=== PATIENT | male | born 1950 | race Caucasian/White ===

== ENCOUNTER → 2017-07-07 | Outpatient (REF) | payer OTHER ==
[2017-07-07 18:27] LABS: THEOPHYLLINE LEVEL 7.7 UG/ML (10.0-20.0)
== END ==
LOC: M LAB REF 17:13
DX: J62.0 Pneumoconiosis due to talc dust (principal)

== ENCOUNTER → 2018-05-27 | Outpatient (REF) | payer MEDICARE ==
[2018-05-27 18:25] LABS: PERCENT SATURATION 12.2 % (19.7-50.0)
== END ==
LOC: M LAB REF 17:04
PROVIDERS: ATTEND Internal Medicine Nephrology
DX: D64.9 Anemia, unspecified (principal)

== ENCOUNTER 2018-06-04 10:28 | Outpatient (CLI) | payer MEDICARE ==
[2018-06-04] VITALS (7 sets, daily range): BP systolic 131–162; BP diastolic 60–76
[~2018-06-04] VITALS: Ht 179.1 cm; Wt 131.4 kg
[2018-06-04] MEDS ORDERED: IRON SUCROSE 25 MG in NS 50 ML IV ONE (12:00)
[2018-06-04] MEDS ORDERED: BUPR300T34 PO (12:44)
[2018-06-04] MEDS ORDERED: DULO60CA35 PO (12:44)
[2018-06-04] MEDS ORDERED: COMBAER6 INH (12:44)
[2018-06-04] MEDS ORDERED: METH5TA PO (12:44)
[2018-06-04] MEDS ORDERED: ADV100INH INH (12:44)
[2018-06-04] MEDS ORDERED: ZANA4CAP PO (12:44)
[2018-06-04] MEDS ORDERED: THEO1CAP4 PO (12:44)
[2018-06-04] MEDS ORDERED: VITA-112 PO (12:44)
[2018-06-04] MEDS ORDERED: CETI10TA PO (12:44)
[2018-06-04] MEDS ORDERED: AMIT50TA PO (12:44)
[2018-06-04] MEDS ORDERED: NOVOINJ3 SQ (12:44)
[2018-06-04] MEDS ORDERED: PROP50TA3 PO (12:44)
[2018-06-04] MEDS ORDERED: DILT1CAP5 PO (12:44)
[2018-06-04] MEDS ORDERED: QUET150T2 PO (12:44)
[2018-06-04] MEDS ORDERED: PRAV40TA2 PO (12:44)
[2018-06-04] MEDS ORDERED: BASA100I SQ (12:44)
[2018-06-04] MEDS ORDERED: GABA-843 PO (12:44)
[2018-06-04] MEDS ORDERED: CINA30TA PO (12:44)
[2018-06-04] MEDS ORDERED: HYDR50CA2 PO (12:44)
[2018-06-04] MEDS ORDERED: MIRT15TA3 PO (12:44)
[2018-06-04] MEDS ORDERED: IRON SUCROSE 375 MG in NS 250 ML IV ONE (13:00)
== END 2018-06-04 16:28 | disposition home or self-care (01) ==
LOC: M INFU 10:28
PROVIDERS: ATTEND Internal Medicine Nephrology
DX: D50.9 Iron deficiency anemia, unspecified (principal)
CPT/HCPCS: 96365; 96366; J1756

== ENCOUNTER 2018-06-18 09:57 | Outpatient (CLI) | payer MEDICARE ==
[~2018-06-18] VITALS: Ht 179.1 cm; Wt 131.4 kg
[2018-06-18] VITALS (8 sets, daily range): BP systolic 107–145; BP diastolic 53–78
[~2018-06-18 09:57] MED LIST: ADV100INH INH; AMIT50TA PO; BASA100I SQ; BUPR300T34 PO; CETI10TA PO; CINA30TA PO; COMBAER6 INH; DILT1CAP5 PO; DULO60CA35 PO; GABA-843 PO; HYDR50CA2 PO; METH5TA PO; MIRT15TA3 PO; NOVOINJ3 SQ; PRAV40TA2 PO; PROP50TA3 PO; QUET150T2 PO; THEO1CAP4 PO; VITA-112 PO; ZANA4CAP PO
[2018-06-18] MEDS ORDERED: IRON SUCROSE 400 MG in NS 250 ML OVER 2.5 HRS IV ONE (11:00)
== END 2018-06-18 14:55 | disposition home or self-care (01) ==
LOC: M INFU 09:57
PROVIDERS: ATTEND Internal Medicine Nephrology
DX: D50.9 Iron deficiency anemia, unspecified (principal); Z79.899 Other long term (current) drug therapy
CPT/HCPCS: 96365; 96366; J1756

== ENCOUNTER → 2019-04-15 | Outpatient (REF) | payer MEDICARE ==
[~2019-04-15] MED LIST changes: -BUPR300T34 PO; +BUPR300T92 PO; -CINA30TA PO; +CINA30TA4 PO
[2019-04-15 18:39] LABS: FREE T4 0.84 NG/DL (0.76-1.46); PERCENT SATURATION 28.9 % (19.7-50.0); THYROID STIMULATING HORMONE 0.674 uIU/ML (0.358-3.740)
[2019-04-15 18:40] LABS: TOTAL T3 78.9 NG/DL (60.0-181.0)
[2019-04-15 18:41] LABS: FOLATE 6.1 NG/ML
== END ==
LOC: M LAB REF 17:54
PROVIDERS: ATTEND Nurse Practitioner Family
DX: E03.9 Hypothyroidism, unspecified (principal); R53.83 Other fatigue; D64.9 Anemia, unspecified; N18.3 Chronic kidney disease, stage 3 (moderate)

== ENCOUNTER → 2019-10-19 | Outpatient (CLI) | payer MEDICARE ==
[~2019-10-19] MED LIST changes: +ABIL1TAB11 PO; +ADV500INH INH; +BASA100I SC; +CALC1CAP31 PO; +CETI10TA4 PO; +DILT240C83 PO; +DOCU100C17 PO; +FLOM0.4C39 PO; +FURO40TA2 PO; +LIDO5TD TD; +LOSA50TA88 PO; +METO25TA PO; +NYST10006 TOP; +OMEP1CAP73 PO; +PEG1POW PO; +SENN8.6T28 PO; +TIZA4TAB4 PO; +TORS20TA2 PO
--- NOTE | 2019-11-23 13:03 | REP ---
LIMITED PELVIC, BLADDER SONOGRAPHY HISTORY: Acute kidney failure. Retention of urine. FINDINGS: Transabdominal scanning demonstrates moderate distention of the urinary bladder. Prevoid bladder volume is calculated at 978 mL. Complete emptying was observed with 0% postvoid residual. No bladder mass lesion is observed. IMPRESSION: Large bladder capacity distended urinary bladder with complete postvoid emptying. MTDD
--- NOTE | 2019-11-23 13:06 | REP ---
URINARY TRACT SONOGRAPHY HISTORY: Acute kidney failure. COMPARISON: CT study 03/08/2012. CT FINDINGS: Renal cortical echogenicity pattern is normal. There is a complex septated cystic lesion in the upper pole of the right kidney measuring 3.9 x 3.9 x 5.0 cm. This is seen on prior CT. There is also a small simple cyst 1.9 cm in greatest diameter in the right mid kidney. No hydronephrosis is seen on either side. Right renal dimensions are 11.6 x 5.8 x 6.0 cm. The left kidney measures 10.7 x 9.9 x 5.7 cm. IMPRESSION: Complex peripheral cyst again seen in the right kidney. Otherwise negative urinary tract sonography. Bladder imaged separately. [facility]
== END ==
LOC: M RAD 15:56
PROVIDERS: ATTEND Nurse Practitioner Family
DX: N17.9 Acute kidney failure, unspecified (principal); N28.1 Cyst of kidney, acquired; R33.9 Retention of urine, unspecified

== ENCOUNTER 2019-12-21 16:35 | Inpatient (IN) | payer MEDICARE ==
[~2019-12-21] VITALS: Ht 177.8 cm; Wt 118.0 kg
[~2019-12-21 16:35] MED LIST changes: -ABIL1TAB11 PO; -ADV500INH INH; -BASA100I SC; -CALC1CAP31 PO; -CETI10TA4 PO; -DILT240C83 PO; -DOCU100C17 PO; -FLOM0.4C39 PO; -FURO40TA2 PO; -LIDO5TD TD; -LOSA50TA88 PO; -METO25TA PO; -NYST10006 TOP; -OMEP1CAP73 PO; -PEG1POW PO; -SENN8.6T28 PO; -TIZA4TAB4 PO; -TORS20TA2 PO
[2019-12-21] MEDS ORDERED: GLUCAGON INJ 1MG VIAL SC PRN (17:00)
[2019-12-21] MEDS ORDERED: GLUCOSE 4GM CHEW TABLET PO PRN (17:00)
[2019-12-21] MEDS ORDERED: DEXTROSE 50% 50 ML SYRINGE IV PRN (17:00)
[2019-12-21] MEDS: ADVAIR HFA 230/21MCG INHALER INH SCH (20:00)
--- NOTE | 2019-12-21 20:35 | HPEPDOC ---
[facility] Medical History & Physical Date of Admission Dec 21, 2019 Date of Service: Dec 21, 2019 Attending Physician: PERLA BARR MD History and Physical TIME OF SERVICE: 900PM CHIEF COMPLAINT: Fall HISTORY OF PRESENT ILLNESS: This 69 yr old M reports slipping and falling this morning while walking to the bathroom. When his found him on the bathroom floor he was difficult to arouse. Prior to the fall he felt dizzy and short of breath, but he denied having blurry vision, ringing in his ears, chest pain, vomiting or diarrhea. He is c/o that he has been feeling thirsty and that he has some difficulties remembering recent events. Based on notes from [facility] when the patient arrived at the hospital he was more alert, his vitals were wnl except for a HR in the 100s. His work up was remarkable for a WBC # of 13.8, plt #of 194, Na of 129, K of 2.7, HCO3 of 37, BUN of 180 (was 83 on 10/28/19) , Cr of 4.31 (was 2.1 on 10/28/19), AST was 102 and A1C was 7.1%. UA was remarkable for hyaline casts. EKG showed sinus tachycardia w a rate of [address] of the head showed mild atrophy. He was noted to have an O2 sat of 87% on RA but the chest xray was unremarkable. Transfer to [facility] was requested for a higher level of care. REVIEW OF SYSTEMS: 12 point review of systems negative except as listed in HPI PAST MEDICAL/ SURGICAL HISTORY: CKD IIIa Type 2 diabetes COPD Chronic oxygen-dependent respiratory failure (3 L) Dyslipidemia Hyperthyroidism Vitamin D deficiency Hypertension BIN noncompliant with PAP Chronic back pain Anxiety/depression Chronic Methadone use SOCIAL HISTORY: He doesn't smoke He quit drinking 30 years ago He is and lives with his FAMILY HISTORY: Diabetes Denies family history of CKD ALLERGIES: Please see below. HOME MEDICATIONS: Please see below. PHYSICAL EXAMINATION: Vital Signs Date Time Temp Pulse Resp B/P (MAP) Pulse Ox O2 Delivery O2 Flow Rate FiO2 12/21/19 22:00 98.5 106 20 134/45 (74) 92 Nasal Cannula 1.0 GEN: Obese/ well developed/ NAD INTEGUMENT: not flushed/ not jaundice HEENT: lips acyanotic /mucus membranes moist and pink CVS: RRR/NMRG/ radial and dorsalis pedis pulses intact / no lower extremity edema LUNGS: able to speak full sentences without stopping to take a breath / no coughing / lungs are clear to auscultation bilaterally on room air ABDOMEN: Contour ( obese) / soft & not tender with palpation MSK/EXTREMITIES: NCAT NEURO: speech is not dysarthric PSYCH: alert and oriented / verbal responses a bit slow/ able to understand and follow simple commands LABORATORY DATA: 12/21/19 20:49 IMAGING: See HPI MICROBIOLOGY: blood cx pending ASSESSMENT: is a 69 yr old w a hx of CKD IIIa, Type 2 diabetes, COPD, Chronic O2 dependence (3 L), Hyperthyroidism, HTN, Chronic back pain, Anxiety/depression and chronic methadone use who presented to [facility] for evaluation of AMS after having a fall and was diagnosed with GERMAN on CKD3; he was transferred to [facility] for a higher level of care. PLAN: 1. Encephalopathy -Resolving -May be 2/2 uremia and reduced renal clearance of meds - CT head unrevealing Plan: admit to medical floor / treat renal failure / hold cetirazine, hydroxisine, methadone, tizanadine and check TSH & theophyline levels 2.Fall 2/2 Presyncope vs Syncope EKG reviewed Plan: telemetry / check Trop & CPK / fall precautions / PT eval 3. 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 Hyperosmolar hyponatremia Possibly pseudohyponatremia 2/2 paraproteinemia Paraprotein Gap is 4 Plan: f/u SPEP and repeat BMP 5. Hypokalemia Plan: replete K and f/u Mag 6. Hypercarbia 2/2 OHS He is not compliant w PAP Plan: supplemental O2 7.Transaminitis Plan: f/u Hep panel 8. COPD / Chronic oxygen-dependent respiratory failure (3 L) Plan: supplemental O2 / c/w albuterol, theophyline & Advair 9. Dyslipidemia Plan: pravastatin 10. Hyperthyroidism Plan: propylthiouracil 11. Chronic Hypertension Plan: Cardizem / hold torsemide & losartan on hold 12. Chronic back pain Plan: acetaminophen 13. Anxiety/depression Plan: bupropion DVT PROPHYLAXIS: heparin DISPOSITION: home after more than 2 midnight's stay Home Medications Scheduled Bupropion HCl (Bupropion Xl) 300 Mg Tab, 300 MG PO DAILY Calcitriol (Calcitriol) 0.25 Mcg Capsule, 0.25 MCG PO 5XW THURSDAY THROUGH THURSDAY Cetirizine HCl (Cetirizine HCl) 10 Mg Tablet, 10 MG PO DAILY Docusate Sodium (Docusate Sodium) 100 Mg Capsule, 100 MG PO BID Duloxetine HCl (Duloxetine HCl) 60 Mg Cap, 60 MG PO BID Hydroxyzine Pamoate (Hydroxyzine Pamoate) 50 Mg Cap, 50 MG PO BID Insulin Aspart (Novolog Flexpen) 100 Unit/Ml Inj, 10 UNITS SQ WM Insulin Glargine,Hum.rec.anlog (Basaglar Kwikpen U-100) 100 Unit/Ml Inj, 65 UNIT SQ BID Losartan Potassium (Losartan Potassium) 50 Mg Tablet, 50 MG PO DAILY Methadone HCl (Methadone HCl) 5 Mg Tab, 5 MG PO TID Metolazone (Metolazone) 2.5 Mg Tablet, 2.5 MG PO Q2D Omeprazole (Omeprazole) 20 Mg Capsule.dr, 20 MG PO DAILY Pravastatin Sodium (Pravastatin Sodium) 40 Mg Tab, 40 MG PO DAILY Propylthiouracil (Propylthiouracil) 50 Mg Tab, 50 MG PO BID Salmeterol/Fluticasone (Advair 500-50 Diskus) 1 Each Blst.w.dev, 1 PUFF INH BID Sennosides (Senna) 8.6 Mg Tablet, 2 TAB PO QHS Tamsulosin HCl (Flomax) 0.4 Mg Capsule, 0.4 MG PO DAILY Theophylline Anhydrous (Peyman-24) 300 Mg Cap.er.24h, 300 MG PO BID Tizanidine HCl (Tizanidine HCl) 4 Mg Tablet, 4 MG PO TID Torsemide (Torsemide) 20 Mg Tablet, 40 MG PO BID dilTIAZem HCl (Diltiazem 24Hr Cd) 240 Mg Cap.er.24h, 240 MG PO DAILY Scheduled PRN Ipratropium/Albuterol Sulfate (Combivent Respimat 20-100 Mcg) 1 Aer Aer, 1 PUFF INH QID PRN for SHORTNESS OF BREATH Allergies Coded Allergies: No Known Drug Allergies (Verified Allergy, Unknown, 06/04/18) A-FIB/CHADSVASC A-FIB History Current/History of A-Fib/PAF?: No Current PO Anticoag Therapy: No PERLA BARR MD Dec 21, 2019 20:35
[2019-12-21] MEDS: HumaLOG INSULIN (NovoLOG) PER UNIT SC SCH (21:00)
[2019-12-21] MEDS ORDERED: tiZANidine 4 MG TAB PO SCH (21:00)
[2019-12-21] MEDS: NYSTATIN 100,000 UNITS/GM TOPICAL PWD 15 GM TOP SCH (21:00)
[2019-12-21] MEDS ORDERED: METHADONE 5 MG TAB (S0109) PO SCH (21:00)
[2019-12-21] MEDS ORDERED: hydrOXYzine 50 MG TAB PO SCH (21:00)
[2019-12-21 21:51] LABS: ALBUMIN 3.7 GM/DL (3.2-5.2); BILIRUBIN,TOTAL 0.5 MG/DL (0.2-1.0); CALCIUM LEVEL 9.7 MG/DL (8.8-10.2); CREATININE FOR GFR 3.76 MG/DL (0.70-1.30); GLOMERULAR FILTRATION RATE 17.2 (>49); POTASSIUM SERUM 3.1 MEQ/L (3.5-5.1); TOTAL PROTEIN 7.6 GM/DL (6.4-8.2)
[2019-12-21 22:00] VITALS: BP 134/45
[2019-12-21] MEDS: NS 1,000 ML IV SCH (22:08)
[2019-12-21 22:13] LABS: HEMATOCRIT 42.4 % (42.0-52.0); HEMOGLOBIN 14.1 g/dl (13.5-17.5); MEAN CORPUSCULAR HEMOGLOBIN 26.5 pg (27.0-33.0); MEAN CORPUSCULAR HGB CONC 33.3 g/dl (32.0-36.5); MEAN CORPUSCULAR VOLUME 79.5 fl (80.0-96.0); PLATELET COUNT, AUTOMATED 171 10^3/uL (150-450); RED BLOOD COUNT 5.33 10^6/uL (4.30-6.10); WHITE BLOOD COUNT 16.2 10^3/uL (4.0-10.0)
[2019-12-21] MEDS ORDERED: ADV500INH INH (23:03)
[2019-12-21] MEDS ORDERED: OMEP1CAP73 PO (23:03)
[2019-12-21] MEDS ORDERED: DILT240C83 PO (23:03)
[2019-12-21] MEDS ORDERED: METO25TA PO (23:03)
[2019-12-21] MEDS ORDERED: CALC1CAP31 PO (23:03)
[2019-12-21] MEDS ORDERED: THEO1CAP4 PO (23:03)
[2019-12-21] MEDS ORDERED: TORS20TA2 PO (23:03)
[2019-12-21] MEDS ORDERED: TIZA4TAB4 PO (23:03)
[2019-12-21] MEDS ORDERED: SENN8.6T28 PO (23:03)
[2019-12-21] MEDS ORDERED: LOSA50TA88 PO (23:03)
[2019-12-21] MEDS ORDERED: FLOM0.4C39 PO (23:03)
[2019-12-21] MEDS ORDERED: DOCU100C17 PO (23:03)
[2019-12-21] MEDS ORDERED: CETI10TA4 PO (23:03)
[2019-12-21] MEDS ORDERED: COMBIVENT RESPIMAT 100-20MCG INHALER 4GM INH PRN (23:15)
[2019-12-22] MEDS: SENNA 8.6 MG TAB (SENOKOT) PO SCH ×2 (00:51→22:02)
[2019-12-22] MEDS: THEOPHYLLINE (THEO-24) 100MG SR **CAPSULE PO SCH ×3 (00:51→22:03)
[2019-12-22] MEDS: DOCUSATE SODIUM 100 MG CAP PO SCH ×3 (00:51→22:02)
[2019-12-22] MEDS: DULoxetine 30 MG CAP (CYMBALTA) PO SCH ×3 (00:51→22:03)
[2019-12-22] MEDS: propylthiouraciL 50 MG TAB PO SCH ×3 (00:52→22:03)
[2019-12-22] MEDS: LEVEMIR (INSULIN DETEMIR) 1 UNITS/0.01ML SC SCH ×3 (00:52→22:02)
[2019-12-22] MEDS ORDERED: POTASSIUM CHLORIDE 10% LIQ 20 MEQ/15 ML UDC PO SCH (01:00)
[2019-12-22 01:35] LABS: OSMOLALITY URINE 400 MOSM/KG (500-800)
[2019-12-22 01:41] LABS: MAGNESIUM LEVEL 2.7 MG/DL (1.8-2.4); PHOSPHORUS LEVEL 5.4 MG/DL (2.5-4.9); THEOPHYLLINE LEVEL < 2.0 UG/ML (10.0-20.0); TOTAL PROTEIN 7.2 GM/DL (6.4-8.2)
[2019-12-22 01:46] LABS: CREATININE,RANDOM URINE 63.2 MG/DL; SODIUM,RANDOM URINE 11 MEQ/L
[2019-12-22 01:49] LABS: URIC ACID 18.4 MG/DL (3.5-7.2)
[2019-12-22 01:54] LABS: TROPONIN I 0.09 NG/ML (< 0.10)
[2019-12-22] MEDS: HEPARIN SOD (PORCINE) 5000UNITS/ML 1ML VIAL/SYRINGE SQ SCH ×3 (05:50→22:03)
[2019-12-22 06:00] VITALS: BP 125/50
[2019-12-22 06:46] LABS: BASO % 0.3 % (0.0-1.0); EOS # 0.2 10^3/uL (0.0-0.5); EOS % 1.6 % (0.0-3.0); HEMATOCRIT 41.5 % (42.0-52.0); HEMOGLOBIN 13.8 g/dl (13.5-17.5); LYMPH # 1.4 10^3/uL (1.5-5.0); LYMPH % 13.6 % (24.0-44.0); MEAN CORPUSCULAR HEMOGLOBIN 26.5 pg (27.0-33.0); MEAN CORPUSCULAR HGB CONC 33.3 g/dl (32.0-36.5); MEAN CORPUSCULAR VOLUME 79.8 fl (80.0-96.0); MONO # 1.3 10^3/uL (0.0-0.8); MONO % 12.6 % (0.0-5.0); NEUTROPHILS # 7.5 10^3/uL (1.5-8.5); NEUTROPHILS % 71.4 % (36.0-66.0); PLATELET COUNT, AUTOMATED 180 10^3/uL (150-450); WHITE BLOOD COUNT 10.5 10^3/uL (4.0-10.0)
[2019-12-22 07:21] LABS: CALCIUM LEVEL 9.5 MG/DL (8.8-10.2); CREATININE FOR GFR 3.1 MG/DL (0.70-1.30); GLOMERULAR FILTRATION RATE 21.4 (>49); MAGNESIUM LEVEL 2.8 MG/DL (1.8-2.4); POTASSIUM SERUM 3.3 MEQ/L (3.5-5.1); THYROID STIMULATING HORMONE 0.684 uIU/ML (0.358-3.740)
[2019-12-22] MEDS: ADVAIR HFA 230/21MCG INHALER INH SCH ×2 (07:28→19:47)
--- NOTE | 2019-12-22 08:09 | REPVR ---
PROCEDURE INFORMATION: Exam: US Retroperitoneal Limited, Kidneys Exam date and time: 12/21/2019 11:36 PM Age: 69 years old Clinical indication: Abnormal findings; Abnormal lab test; Abnormal kidney function lab tests; Additional info: [place] TECHNIQUE: Imaging protocol: Real-time ultrasound of the retroperitoneum with image documentation. Examination was focused on the kidneys. COMPARISON: RENAL US 10/19/2019 4:10 PM FINDINGS: Right kidney: The right kidney measures 12.1 x 5.6 x 7.6 cm. There is no right-sided hydronephrosis. There is a 4.3 x 4.2 x 3.2 cm exophytic hypoechoic nodule from the right upper renal pole with internal echogenicity. Left kidney: The left kidney measures 10.2 x 5.5 x 6.0 cm. There is no focal left renal lesion. There is no left-sided hydronephrosis. Bladder: Stovall catheter balloon seen within collapsed urinary bladder limiting its evaluation. IMPRESSION: Markedly limited exam due to patient's body habitus. Within limitations of the exam, septated 4.3 x 4.2 x 3.2 cm right upper renal pole exophytic cyst, incompletely characterized on this exam, is seen. Allowing for difference in technique it remains grossly unchanged since the prior study. If further characterization is warranted, MRI with contrast may be obtained to exclude enhancing septations or nodular components. Alternatively continued follow-up with ultrasound may be obtained. COMMENTS: Consistent with the [employer]'s Incidental Findings Committee white paper (J Am Ulises Radiol 2018): Any incidental renal lesion less than 1 cm or classified as too small to characterize, or any incidental cystic renal lesion characterized as simple-appearing, is likely benign. No follow-up imaging is recommended for these lesions per consensus recommendations based on imaging criteria. Electronically signed by: Loc Van On 12/22/2019 08:09:26 AM
[2019-12-22] MEDS: PRAVASTATIN 20 MG TAB PO SCH (08:45)
[2019-12-22] MEDS: HumaLOG INSULIN (NovoLOG) PER UNIT SC SCH ×4 (08:45→21:00)
[2019-12-22] MEDS: TAMSULOSIN 0.4 MG CAP PO SCH (08:45)
[2019-12-22] MEDS: buPROPion **XL** TABLET 150MG (WELLBUTRIN XL) PO SCH (08:46)
[2019-12-22] MEDS: NYSTATIN 100,000 UNITS/GM TOPICAL PWD 15 GM TOP SCH ×2 (08:47→22:04)
[2019-12-22 09:55] LABS: ALBUMIN 3.89 GM/DL (3.29-5.55); ALPHA-1-GLOBULINS 0.36 GM/DL (0.17-0.41); ALPHA-2-GLOBULINS 0.99 GM/DL (0.42-0.99); ALPHA-2-GLOBULINS % 13.7 % (7.1-11.8); BETA-1-GLOBULINS 0.51 GM/DL (0.28-0.60)
[2019-12-22 09:56] LABS: BETA-1-GLOBULINS % 7.1 % (4.7-7.2); BETA-2-GLOBULINS 0.44 GM/DL (0.19-0.55); BETA-2-GLOBULINS % 6.1 % (3.2-6.5); GAMMA GLOBULIN % 14.1 % (11.1-18.8); GAMMA GLOBULINS 1.02 GM/DL (0.65-1.58)
[2019-12-22] MEDS: METHADONE 5 MG TAB (S0109) PO SCH ×3 (10:47→22:02)
[2019-12-22 11:24] LABS: CPK CREATINE PHOSPHOKINASE 1414 U/L (39-308); HEPATITIS A ANTIBODY IGM NEGATIVE (NEGATIVE); HEPATITIS B CORE ANTIBODY IGM NEGATIVE (NEGATIVE); HEPATITIS B SURFACE ANTIGEN NEGATIVE (NEGATIVE); HEPATITIS C VIRUS ABY INDEX 0.1 INDEX (<0.8); PTH INTACT 248.3 PG/ML (18.5-88.0); TOTAL 25(OH) VITAMIN D 57.3 NG/ML (30.0-100.0)
[2019-12-22 14:00] VITALS: BP 120/54
[2019-12-22] MEDS: NS 1,000 ML IV SCH (15:43)
--- NOTE | 2019-12-22 21:42 | IPNPDOC ---
Subjective Date Seen The patient was seen on 12/22/19. Subjective Chief Complaint/HPI Mr. Mosley is a 69 year old male here with fall secondary to weakness found to have GERMAN. This morning, he was seen trying to eat breakfast. His arms were weak and had trouble lifting the pulse ox on wrist. It was removed so he could have breakfast. Tells me that he has progressively gotten weaker. Otherwise, denies fever/chills, chest pain, abdominal pain, diarrhea or dysuria Constitutional: Denies: Chills, Fever Pulmonary: Denies: Dyspnea Cardiovascular: Denies: Chest Pain Gastrointestinal: Denies: Abdominal Pain Genitourinary: Denies: Dysuria Neurological: Reports: Weakness Objective Physical Examination General Exam: Negative: Alert, Cooperative Eye Exam: Positive: EOMI; Negative: Sclera icteric Neck Exam: Positive: Supple Heart Exam: Positive: Rate Normal, Regular Rhythm Abdomen Exam: Positive: Normal bowel sounds, Soft; Negative: Tenderness Extremity Exam: Positive: Edema Neuro Exam: Positive: Cranial Nerves 3-12 NL Psych Exam: Positive: Mental status NL, Mood NL Assessment /Plan Assessment Mr. Mosley is an 69 year old male here with fall secondary to weakness. The weakness has been progressive. In addition, he is here with GERMAN. Receiving IV fluids. Will order MRI head to look for causes of weakness. Plan/VTE VTE Prophylaxis Ordered?: Yes Plan 1. Toxic-Metabolic Encephalopathy -2/2 uremia from GERMAN and reduced clears of mediation -Resolving -Continue hydration and holding tizanadine 2. Weakness -Chronic and progressive -Will check MRI 3. 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 Hyperosmolar hyponatremia -Possibly pseudohyponatremia 2/2 paraproteinemia -SPEP dose not demonstrate M-spike 5. Hypokalemia -Follow potassium 6. Hypercarbia 2/2 OHS -Non-compliant with CPAP -Nocturnal O2 7.Transaminitis -Hepatitis panel negative 8. COPD / Chronic oxygen-dependent respiratory failure (3 L) -Continue supplemental oxygen, albuterol, theophyline & Advair 9. Dyslipidemia -Pravastatin 10. Hyperthyroidism -Propylthiouracil 11. Chronic Hypertension -Cardizem -Hold torsemide & losartan on hold due to GERMAN 12. Chronic back pain -Acetaminophen 13. Anxiety/depression -Bupropion 14. DVT ppx -Heparin VS, I&O, 24H, Yue Vital Signs/I&O Vital Signs Date Time Temp Pulse Resp B/P (MAP) Pulse Ox O2 Delivery O2 Flow Rate FiO2 12/22/19 14:00 97.5 90 20 120/54 (76) 92 Nasal Cannula 0.5 I&O- Last 24 Hours up to 6 AM 12/22/19 06:00 Intake Total 1080 ml Output Total 800 ml Balance 280 ml Laboratory Data 24H LABS Laboratory Tests 2 12/21/19 21:42: Nucleated Red Blood Cells % (auto) 0.0 12/21/19 22:35: Uric Acid 18.4H, Phosphorus Level 5.4H, Magnesium Level 2.7H, Total Creatine Kinase 1414H, Troponin I 0.09, Total Protein (PEP) 7.2, Albumin (%) 54.0L, Bqhot-8-Gpnyikyxl (%) 5.0H, Qtozr-9-Mlkuuifuf (%) 13.7H, Gamma Globulins (%) 14.1, Bajzi-9-Ixieueiis 0.36, Ifndg-2-Ugzkunyjd 0.99, Gamma Globulins 1.02, Protein Electrophoresis Interpret SEE COMMENT, Albumin (PEP) 3.89, Inon-6-Vxxgxi in 0.51, Zbfu-3-Zqgoavzv (%) 7.1, Ohwl-1-Widydmak 0.44, Vvuv-5-Tuhtwvie (%) 6.1, Serum PEP Pathologist Review REV'D BY Krystal CARR, 25-Hydroxy Vitamin D Total 57.3, Parathyroid Hormone (Intact) 248.3H, Theophylline Level < 2.0L, Hepatitis A IgM Antibody NEGATIVE, Hepatitis B Surface Antigen NEGATIVE, Hepatitis B Core IgM Antibody NEGATIVE, Hepatitis C Antibody Index 0.1 12/22/19 01:03: Urine Color YELLOW, Urine Appearance CLEAR, Urine pH 5.0, Urine Specific [place] 1.010, Urine Protein NEGATIVE, Urine Glucose (UA) NEGATIVE, Urine Ketones NEGATIVE, Urine Blood 3+H, Urine Nitrite NEGATIVE, Urine Bilirubin NEGATIVE, Urine Urobilinogen 0.2, Urine Leukocyte Esterase TRACEH, Urine WBC (Auto) 3, Urine RBC (Auto) 32H, Urine Hyaline Casts (Auto) 0, Urine Bacteria (Auto) NEGATIVE, Urine Squamous Epithelial Cells 0, Urine Sperm (Auto) , Urine Random Osmolality 400L, Urine Random Creatinine 63.2, Urine Random Sodium 11 12/22/19 06:29: Nucleated Red Blood Cells % (auto) 0.0, Magnesium Level 2.8H, Immature Granulocyte % (Auto) 0.5, Neutrophils (%) (Auto) 71.4H, Lymphocytes (%) (Auto) 13.6L, Monocytes (%) (Auto) 12.6H, Eosinophils (%) (Auto) 1.6, Basophils (%) (Auto) 0.3, Neutrophils # (Auto) 7.5, Lymphocytes # (Auto) 1.4L, Monocytes # (Auto) 1.3H, Eosinophils # (Auto) 0.2, Basophils # (Auto) 0.0, Anion Gap 10, Glomerular Filtration Rate 21.4L, Calcium Level 9.5, Thyroid Stimulating Hormone (TSH) 0.684 12/22/19 11:49: Bedside Glucose (Misc Panel) 195H 12/22/19 17:07: Bedside Glucose (Misc Panel) 189H 12/22/19 20:36: Bedside Glucose (Misc Panel) 235H CBC/BMP Laboratory Tests 12/21/19 21:42 12/22/19 06:29 Microbiology Microbiology 12/22/19 Urine Culture, Received Pending 12/22/19 Gram Stain - Final, Resulted 12/22/19 Neisseria gonorrhoeae Culture, Resulted Pending 12/21/19 Blood Culture - Preliminary, Resulted No growth after 24 hours . All specim... 12/21/19 Blood Culture - Preliminary, Resulted No growth after 24 hours . All specim... FRANCHESCA ESPITIA DO Dec 22, 2019 21:42
[2019-12-22 22:00] VITALS: BP 121/50
--- NOTE | 2019-12-22 22:09 | REPVR ---
PROCEDURE INFORMATION: Exam: MR Head Without Contrast Exam date and time: 12/22/2019 9:36 PM Age: 69 years old Clinical indication: Other: General weakness TECHNIQUE: Imaging protocol: MR of the head without contrast. COMPARISON: No relevant prior studies available. FINDINGS: Brain: No evidence of restricted diffusion to suggest an acute infarct. No mass, midline shift, or mass effect. No evidence of hemorrhage. Minimal small vessel ischemic changes. Ventricles and sulci are enlarged presenting rkkt-yn-tptldwje volume loss. Cerebral ventricles: Normal. No ventriculomegaly. Bones/joints: Unremarkable. Paranasal sinuses: Mild mucosal thickening of the ethmoidal air cells and bilateral visualized maxillary sinuses. Mastoid air cells: Trace fluid in bilateral mastoid air cells. Orbits: Unremarkable. Soft tissues: Unremarkable. IMPRESSION: No acute intracranial abnormality. Aidm-ti-ugecirsv volume loss and minimal small vessel ischemic changes. Trace fluid in bilateral mastoid air cells. Minimal sinus disease. Electronically signed by: Jade Merrill On 12/22/2019 22:09:20 PM
[2019-12-23 04:06] VITALS: O2SAT 95
[2019-12-23] MEDS: HEPARIN SOD (PORCINE) 5000UNITS/ML 1ML VIAL/SYRINGE SQ SCH ×3 (05:08→21:41)
[2019-12-23] MEDS: NS 1,000 ML IV SCH ×2 (05:08→21:52)
[2019-12-23 05:43] VITALS: BP 137/61
[2019-12-23] MEDS: ADVAIR HFA 230/21MCG INHALER INH SCH ×2 (07:18→19:33)
[2019-12-23] MEDS: HumaLOG INSULIN (NovoLOG) PER UNIT SC SCH ×4 (07:30→21:00)
[2019-12-23 07:42] LABS: BASO # 0.1 10^3/uL (0.0-0.2); BASO % 0.8 % (0.0-1.0); EOS # 0.2 10^3/uL (0.0-0.5); EOS % 2.8 % (0.0-3.0); HEMATOCRIT 37.6 % (42.0-52.0); HEMOGLOBIN 12.4 g/dl (13.5-17.5); LYMPH # 1.7 10^3/uL (1.5-5.0); MEAN CORPUSCULAR HEMOGLOBIN 26.4 pg (27.0-33.0); MONO # 1.2 10^3/uL (0.0-0.8); MONO % 14.9 % (0.0-5.0); NEUTROPHILS # 4.6 10^3/uL (1.5-8.5); PLATELET COUNT, AUTOMATED 148 10^3/uL (150-450); WHITE BLOOD COUNT 7.7 10^3/uL (4.0-10.0)
[2019-12-23 08:01] LABS: CREATININE FOR GFR 2.15 MG/DL (0.70-1.30); GLOMERULAR FILTRATION RATE 32.7 (>49)
[2019-12-23 08:02] LABS: MAGNESIUM LEVEL 2.6 MG/DL (1.8-2.4)
[2019-12-23] MEDS: propylthiouraciL 50 MG TAB PO SCH ×2 (08:09→21:41)
[2019-12-23] MEDS: THEOPHYLLINE (THEO-24) 100MG SR **CAPSULE PO SCH ×2 (08:09→21:41)
[2019-12-23] MEDS: DULoxetine 30 MG CAP (CYMBALTA) PO SCH ×2 (08:09→21:40)
[2019-12-23] MEDS: METHADONE 5 MG TAB (S0109) PO SCH ×3 (08:10→21:40)
[2019-12-23] MEDS: TAMSULOSIN 0.4 MG CAP PO SCH (08:10)
[2019-12-23] MEDS: buPROPion **XL** TABLET 150MG (WELLBUTRIN XL) PO SCH (08:10)
[2019-12-23] MEDS: DOCUSATE SODIUM 100 MG CAP PO SCH ×2 (08:10→21:41)
[2019-12-23] MEDS: PRAVASTATIN 20 MG TAB PO SCH (08:10)
[2019-12-23] MEDS: NYSTATIN 100,000 UNITS/GM TOPICAL PWD 15 GM TOP SCH ×2 (08:13→21:41)
[2019-12-23] MEDS: LEVEMIR (INSULIN DETEMIR) 1 UNITS/0.01ML SC SCH ×2 (09:00→21:42)
[2019-12-23] MEDS ORDERED: POTASSIUM CHLORIDE 10 MEQ SR TABLET PO ONE (10:00)
[2019-12-23] MEDS ORDERED: ACETAMINOPHEN TAB 650MG DOSE (2X325MG) PO PRN (10:30)
[2019-12-23 14:00] VITALS: BP 120/55
[2019-12-23] MEDS ORDERED: LIDOCAINE 5% (LIDODERM) PATCH TD ONE ×2 (14:30→15:00)
[2019-12-23 16:21] VITALS: O2SAT 92
--- NOTE | 2019-12-23 20:03 | IPNPDOC ---
Subjective Date Seen The patient was seen on 12/23/19. Subjective Chief Complaint/HPI Mr. Mosley is a 69 year old male here with fall secondary to weakness found to have GERMAN. This morning, he denies fever/chills, chest pain, abdominal pain, diarrhea or dysuria. MRI obtain yesterday has been negative for stroke. Tested deep tendon reflexes in the knee and triceps which were 2+. He was able to hold arms up against gravity without drifting. No pronator drift either. Constitutional: Denies: Chills, Fever Pulmonary: Denies: Dyspnea Cardiovascular: Denies: Chest Pain Gastrointestinal: Denies: Abdominal Pain Genitourinary: Denies: Dysuria Neurological: Reports: Weakness Objective Physical Examination General Exam: Negative: Alert, Cooperative Eye Exam: Positive: EOMI; Negative: Sclera icteric Neck Exam: Positive: Supple Heart Exam: Positive: Rate Normal, Regular Rhythm Abdomen Exam: Positive: Normal bowel sounds, Soft; Negative: Tenderness Extremity Exam: Positive: Edema Neuro Exam: Positive: Cranial Nerves 3-12 NL, Reflexes 2+ (Knee and triceps) Psych Exam: Positive: Mental status NL, Mood NL Assessment /Plan Assessment Mr. Mosley is an 69 year old male here with fall secondary to weakness. The weakness has been progressive. MRI negative for stroke. In addition, he is here with GERMAN which has been resolving. Plan/VTE VTE Prophylaxis Ordered?: Yes Plan 1. Toxic-Metabolic Encephalopathy -2/2 uremia from GERMAN and reduced clears of mediation -Resolving -Continue hydration and holding tizanadine 2. Weakness -Chronic and progressive -Will check MRI 3. 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 Hyperosmolar hyponatremia -Possibly pseudohyponatremia 2/2 paraproteinemia -SPEP dose not demonstrate M-spike 5. Hypokalemia -Follow potassium 6. Hypercarbia 2/2 OHS -Non-compliant with CPAP -Nocturnal O2 7.Transaminitis -Hepatitis panel negative 8. COPD / Chronic oxygen-dependent respiratory failure (3 L) -Continue supplemental oxygen, albuterol, theophyline & Advair 9. Dyslipidemia -Pravastatin 10. Hyperthyroidism -Propylthiouracil 11. Chronic Hypertension -Cardizem -Hold torsemide & losartan on hold due to GERMAN 12. Chronic back pain -Acetaminophen 13. Anxiety/depression -Bupropion 14. DVT ppx -Heparin VS, I&O, 24H, Fishbone Vital Signs/I&O Vital Signs Date Time Temp Pulse Resp B/P (MAP) Pulse Ox O2 Delivery O2 Flow Rate FiO2 12/23/19 16:21 92 Nasal Cannula 0.5 12/23/19 14:00 97.9 88 16 120/55 (76) I&O- Last 24 Hours up to 6 AM 12/23/19 06:00 Intake Total 4170 ml Output Total 3625 ml Balance 545 ml Laboratory Data 24H LABS Laboratory Tests 2 12/22/19 20:36: Bedside Glucose (Misc Panel) 235H 12/23/19 06:11: Immature Granulocyte % (Auto) 0.5, Neutrophils (%) (Auto) 59.0, Lymphocytes (%) (Auto) 22.0L, Monocytes (%) (Auto) 14.9H, Eosinophils (%) (Auto) 2.8, Basophils (%) (Auto) 0.8, Neutrophils # (Auto) 4.6, Lymphocytes # (Auto) 1.7, Monocytes # (Auto) 1.2H, Eosinophils # (Auto) 0.2, Basophils # (Auto) 0.1, Nucleated Red Blood Cells % (auto) 0.0, Anion Gap 9, Glomerular Filtration Rate 32.7L, Calcium Level 9.0, Magnesium Level 2.6H 12/23/19 11:27: Bedside Glucose (Misc Panel) 155H 12/23/19 16:43: Bedside Glucose (Misc Panel) 196H CBC/BMP Laboratory Tests 12/23/19 06:11 Microbiology Microbiology 12/22/19 Urine Culture - Final, Complete 12/22/19 Gram Stain - Final, Resulted 12/22/19 Neisseria gonorrhoeae Culture, Resulted Pending 12/21/19 Blood Culture - Preliminary, Resulted No growth after 24 hours . All specim... 12/21/19 Blood Culture - Preliminary, Resulted No growth after 24 hours . All specim... FRANCHESCA ESPITIA DO Dec 23, 2019 20:03
[2019-12-23 21:00] VITALS: O2SAT 94
[2019-12-23] MEDS ORDERED: **NOTE PATIENT COMMENT** MISC XX SCH (21:00)
[2019-12-23] MEDS: SENNA 8.6 MG TAB (SENOKOT) PO SCH (21:40)
[2019-12-23 22:00] VITALS: BP 138/73
[2019-12-24] MEDS ORDERED: **NOTE PATIENT COMMENT** MISC XX ONE (03:00)
[2019-12-24] MEDS: HEPARIN SOD (PORCINE) 5000UNITS/ML 1ML VIAL/SYRINGE SQ SCH ×2 (05:04→16:20)
[2019-12-24 06:00] VITALS: BP 134/74
[2019-12-24 06:42] LABS: BASO # 0.1 10^3/uL (0.0-0.2); BASO % 0.7 % (0.0-1.0); EOS # 0.3 10^3/uL (0.0-0.5); EOS % 4.5 % (0.0-3.0); HEMATOCRIT 37.3 % (42.0-52.0); LYMPH # 1.5 10^3/uL (1.5-5.0); MEAN CORPUSCULAR HEMOGLOBIN 26.4 pg (27.0-33.0); MEAN CORPUSCULAR HGB CONC 32.2 g/dl (32.0-36.5); MONO # 1.1 10^3/uL (0.0-0.8); MONO % 15.3 % (0.0-5.0); NEUTROPHILS % 58.4 % (36.0-66.0); PLATELET COUNT, AUTOMATED 144 10^3/uL (150-450); RED BLOOD COUNT 4.55 10^6/uL (4.30-6.10); WHITE BLOOD COUNT 6.9 10^3/uL (4.0-10.0)
[2019-12-24 06:59] LABS: CALCIUM LEVEL 9.4 MG/DL (8.8-10.2); CREATININE FOR GFR 1.63 MG/DL (0.70-1.30); MAGNESIUM LEVEL 2.4 MG/DL (1.8-2.4); POTASSIUM SERUM 3.3 MEQ/L (3.5-5.1)
[2019-12-24] MEDS: ADVAIR HFA 230/21MCG INHALER INH SCH ×2 (07:34→19:25)
[2019-12-24 07:39] LABS: C REACTIVE PROTEIN QUANTITATIV 0.72 MG/DL (0.00-0.30)
[2019-12-24 07:58] LABS: ERYTHROCYTE SEDIMENTATION RATE 3 mm/hr (0-20)
[2019-12-24] MEDS: HumaLOG INSULIN (NovoLOG) PER UNIT SC SCH ×4 (08:09→21:00)
[2019-12-24] MEDS: LEVEMIR (INSULIN DETEMIR) 1 UNITS/0.01ML SC SCH ×2 (08:09→21:09)
[2019-12-24] MEDS: buPROPion **XL** TABLET 150MG (WELLBUTRIN XL) PO SCH (08:10)
[2019-12-24] MEDS: PRAVASTATIN 20 MG TAB PO SCH (08:10)
[2019-12-24] MEDS: THEOPHYLLINE (THEO-24) 100MG SR **CAPSULE PO SCH ×2 (08:10→21:15)
[2019-12-24] MEDS: TAMSULOSIN 0.4 MG CAP PO SCH (08:11)
[2019-12-24] MEDS: propylthiouraciL 50 MG TAB PO SCH ×2 (08:11→21:15)
[2019-12-24] MEDS: DULoxetine 30 MG CAP (CYMBALTA) PO SCH ×2 (08:11→21:07)
[2019-12-24] MEDS: DOCUSATE SODIUM 100 MG CAP PO SCH ×2 (08:11→21:08)
[2019-12-24] MEDS: NYSTATIN 100,000 UNITS/GM TOPICAL PWD 15 GM TOP SCH ×2 (08:14→21:08)
[2019-12-24] MEDS: METHADONE 5 MG TAB (S0109) PO SCH ×3 (08:17→21:07)
[2019-12-24] MEDS ORDERED: POTASSIUM CHLORIDE 10 MEQ SR TABLET PO ONE (09:00)
[2019-12-24 09:05] VITALS: O2SAT 94
[2019-12-24 14:00] VITALS: BP 131/57
[2019-12-24] MEDS: NS 1,000 ML IV SCH (14:42)
--- NOTE | 2019-12-24 20:23 | IPNPDOC ---
Subjective Date Seen The patient was seen on 12/24/19. Subjective Chief Complaint/HPI Mr. Mosley is a 69 year old male here with fall secondary to weakness found to have GERMAN. He was seen this morning eating breakfast. It was the first time I've seen him sit up straight in a chair to eat. He denied any fever/chills, chest pain, abdominal pain, diarrhea or dysuria. Today, patient was exposed to physical therapist who was COVID positive. Patient will need to be self quarantined for 14 days. Constitutional: Denies: Chills, Fever Pulmonary: Denies: Dyspnea Cardiovascular: Denies: Chest Pain Gastrointestinal: Denies: Abdominal Pain Genitourinary: Denies: Dysuria Objective Physical Examination General Exam: Positive: Alert, Cooperative Eye Exam: Positive: EOMI; Negative: Sclera icteric Neck Exam: Positive: Supple Heart Exam: Positive: Rate Normal, Regular Rhythm Abdomen Exam: Positive: Normal bowel sounds, Soft; Negative: Tenderness Extremity Exam: Positive: Edema Neuro Exam: Positive: Cranial Nerves 3-12 NL, Reflexes 2+ (Knee and triceps) Psych Exam: Positive: Mental status NL, Mood NL Assessment /Plan Assessment Mr. Mosley is an 69 year old male here with fall secondary to weakness. The weakness has been progressive. MRI negative for stroke. Otherwise, he is here with GERMAN which has been resolving. On 12/24/2019, he was exposed to physical therapist who is COVID positive. Patient will need to self quarantine for 14 days. Plan/VTE VTE Prophylaxis Ordered?: Yes Plan 1. Toxic-Metabolic Encephalopathy -2/2 uremia from GERMAN and reduced clears of mediation -Resolving -Continue hydration and holding tizanadine 2. Weakness -Chronic and progressive -Will need physical therapy to work with patient -MRI not suggestive of stroke 3. 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 Hyperosmolar hyponatremia -Possibly pseudohyponatremia 2/2 paraproteinemia -SPEP dose not demonstrate M-spike 5. Hypokalemia -Follow potassium 6. Hypercarbia 2/2 OHS -Non-compliant with CPAP -Nocturnal O2 7.Transaminitis -Hepatitis panel negative 8. COPD / Chronic oxygen-dependent respiratory failure (3 L) -Continue supplemental oxygen, albuterol, theophyline & Advair 9. Dyslipidemia -Pravastatin 10. Hyperthyroidism -Propylthiouracil 11. Chronic Hypertension -Cardizem -Hold torsemide & losartan on hold due to GERMAN 12. Chronic back pain -Acetaminophen 13. Anxiety/depression -Bupropion 14. DVT ppx -Heparin Dispo: Patient was exposed to physical therapist who was COVID positive. Will need to self quarantine for 14 days from 12/24/2019. Patient is on Droplet/Contact precautions VS, I&O, 24H, Fishbone Vital Signs/I&O Vital Signs Date Time Temp Pulse Resp B/P (MAP) Pulse Ox O2 Delivery O2 Flow Rate FiO2 12/24/19 14:00 98.3 97 20 131/57 (81) 92 Nasal Cannula 0.5 I&O- Last 24 Hours up to 6 AM 12/24/19 06:00 Intake Total 3895 ml Output Total 4700 ml Balance -805 ml Laboratory Data 24H LABS Laboratory Tests 2 12/23/19 21:06: Bedside Glucose (Misc Panel) 225H 12/24/19 05:58: Immature Granulocyte % (Auto) 0.1, Neutrophils (%) (Auto) 58.4, Lymphocytes (%) (Auto) 21.0L, Monocytes (%) (Auto) 15.3H, Eosinophils (%) (Auto) 4.5H, Basophils (%) (Auto) 0.7, Neutrophils # (Auto) 4.0, Lymphocytes # (Auto) 1.5, Monocytes # (Auto) 1.1H, Eosinophils # (Auto) 0.3, Basophils # (Auto) 0.1, Nucleated Red Blood Cells % (auto) 0.0, Erythrocyte Sedimentation Rate 3, Anion Gap 7L, Glomerular Filtration Rate 45.0L, Calcium Level 9.4, Magnesium Level 2.4, C- Reactive Protein, Quantitative 0.72H 12/24/19 11:46: Bedside Glucose (Misc Panel) 159H 12/24/19 17:05: Bedside Glucose (Misc Panel) 168H CBC/BMP Laboratory Tests 12/24/19 05:58 Microbiology Microbiology 12/22/19 Urine Culture - Final, Complete 12/22/19 Gram Stain - Final, Resulted 12/22/19 Neisseria gonorrhoeae Culture, Resulted Pending 12/21/19 Blood Culture - Preliminary, Resulted No Growth after 48 hours. All Specime... 12/21/19 Blood Culture - Preliminary, Resulted No Growth after 48 hours. All Specime... FRANCHESCA ESPIITA DO Dec 24, 2019 20:23
[2019-12-24 21:00] VITALS: O2SAT 94
[2019-12-24] MEDS: SENNA 8.6 MG TAB (SENOKOT) PO SCH (21:07)
[2019-12-24 22:00] VITALS: BP 127/59
[2019-12-25 06:00] VITALS: BP 126/62
[2019-12-25 06:45] LABS: BASO # 0.1 10^3/uL (0.0-0.2); BASO % 0.5 % (0.0-1.0); EOS # 0.5 10^3/uL (0.0-0.5); EOS % 5.1 % (0.0-3.0); HEMATOCRIT 36.5 % (42.0-52.0); HEMOGLOBIN 11.8 g/dl (13.5-17.5); LYMPH # 1.8 10^3/uL (1.5-5.0); LYMPH % 19.5 % (24.0-44.0); MEAN CORPUSCULAR HEMOGLOBIN 26.6 pg (27.0-33.0); MEAN CORPUSCULAR HGB CONC 32.3 g/dl (32.0-36.5); MEAN CORPUSCULAR VOLUME 82.4 fl (80.0-96.0); MONO # 1.2 10^3/uL (0.0-0.8); MONO % 13.2 % (0.0-5.0); NEUTROPHILS # 5.7 10^3/uL (1.5-8.5); NEUTROPHILS % 61.3 % (36.0-66.0); PLATELET COUNT, AUTOMATED 141 10^3/uL (150-450); RED BLOOD COUNT 4.43 10^6/uL (4.30-6.10); WHITE BLOOD COUNT 9.3 10^3/uL (4.0-10.0)
[2019-12-25 07:03] LABS: CALCIUM LEVEL 8.8 MG/DL (8.8-10.2); CREATININE FOR GFR 1.7 MG/DL (0.70-1.30); GLOMERULAR FILTRATION RATE 42.9 (>49); MAGNESIUM LEVEL 2.1 MG/DL (1.8-2.4); POTASSIUM SERUM 3.5 MEQ/L (3.5-5.1)
[2019-12-25] MEDS: ADVAIR HFA 230/21MCG INHALER INH SCH ×2 (07:56→19:29)
[2019-12-25] MEDS: HumaLOG INSULIN (NovoLOG) PER UNIT SC SCH ×4 (08:29→21:00)
[2019-12-25] MEDS: propylthiouraciL 50 MG TAB PO SCH ×2 (08:29→21:47)
[2019-12-25] MEDS: LEVEMIR (INSULIN DETEMIR) 1 UNITS/0.01ML SC SCH ×2 (08:29→21:48)
[2019-12-25] MEDS: TAMSULOSIN 0.4 MG CAP PO SCH (08:29)
[2019-12-25] MEDS: DULoxetine 30 MG CAP (CYMBALTA) PO SCH ×2 (08:31→21:46)
[2019-12-25] MEDS: DOCUSATE SODIUM 100 MG CAP PO SCH ×2 (08:32→21:47)
[2019-12-25] MEDS: THEOPHYLLINE (THEO-24) 100MG SR **CAPSULE PO SCH ×2 (08:33→21:46)
[2019-12-25] MEDS: buPROPion **XL** TABLET 150MG (WELLBUTRIN XL) PO SCH (08:33)
[2019-12-25] MEDS: PRAVASTATIN 20 MG TAB PO SCH (08:33)
[2019-12-25] MEDS: METHADONE 5 MG TAB (S0109) PO SCH ×3 (08:33→21:46)
[2019-12-25] MEDS: NS 1,000 ML IV SCH (08:34)
[2019-12-25] MEDS: NYSTATIN 100,000 UNITS/GM TOPICAL PWD 15 GM TOP SCH ×2 (08:34→21:48)
[2019-12-25] MEDS ORDERED: POTASSIUM CHLORIDE 10 MEQ SR TABLET PO ONE (09:00)
[2019-12-25 09:05] VITALS: O2SAT 87
[2019-12-25] MEDS ORDERED: DOCUSATE SODIUM 100 MG CAP PO PRN (12:30)
[2019-12-25] MEDS ORDERED: MIRALAX *UNIT DOSE* 17GM PACKET PO PRN (12:30)
[2019-12-25 14:00] VITALS: BP 130/70
--- NOTE | 2019-12-25 20:01 | IPNPDOC ---
Subjective Date Seen The patient was seen on 12/25/19. Subjective Chief Complaint/HPI Mr. Mosley is a 69 year old male here with fall secondary to weakness found to have GERMAN. Today, he denies any fever/chills, chest pain, abdominal pain, or diarrhea. We will discontinue the IV fluids today and remove the Stovall for voiding trials. Constitutional: Denies: Fever Pulmonary: Denies: Dyspnea Cardiovascular: Denies: Chest Pain Gastrointestinal: Denies: Abdominal Pain Objective Physical Examination General Exam: Positive: Alert, Cooperative Eye Exam: Positive: EOMI; Negative: Sclera icteric Neck Exam: Positive: Supple Heart Exam: Positive: Rate Normal, Regular Rhythm Abdomen Exam: Positive: Normal bowel sounds, Soft; Negative: Tenderness Extremity Exam: Positive: Edema Neuro Exam: Positive: Cranial Nerves 3-12 NL, Reflexes 2+ (Knee and triceps) Psych Exam: Positive: Mental status NL, Mood NL Assessment /Plan Assessment Mr. Mosley is an 69 year old male here with fall secondary to weakness. The weakness has been progressive. MRI negative for stroke. Otherwise, he is here with GERMAN which has been resolved. He has CKD stage 3 and he is at suspected goal On 12/24/2019, he was exposed to physical therapist who is COVID positive. Patient will need to self quarantine for 14 days. Plan/VTE VTE Prophylaxis Ordered?: Yes Plan 1. Toxic-Metabolic Encephalopathy -2/2 uremia from GERMAN and reduced clears of mediation -Resolved -Holding tizanadine 2. Weakness -Chronic and progressive, but better after hydration -Will need physical therapy to work with patient -MRI not suggestive of stroke 3. GERMAN on CKD 3 -Monitor creatinine 4. Hyperosmolar hyponatremia -Possibly pseudohyponatremia 2/2 paraproteinemia -SPEP dose not demonstrate M-spike 5. Hypokalemia -Follow potassium 6. Hypercarbia 2/2 OHS -Non-compliant with CPAP -Nocturnal O2 7.Transaminitis -Hepatitis panel negative 8. COPD / Chronic oxygen-dependent respiratory failure (3 L) -Continue supplemental oxygen, albuterol, theophyline & Advair 9. Dyslipidemia -Pravastatin 10. Hyperthyroidism -Propylthiouracil 11. Chronic Hypertension -Cardizem -Hold torsemide & losartan on hold due to GERMAN 12. Chronic back pain -Acetaminophen 13. Anxiety/depression -Bupropion 14. DVT ppx -Heparin Dispo: Patient was exposed to physical therapist who was COVID positive. Will need to self quarantine for 14 days from 12/24/2019. Patient is on Droplet/Contact precautions Dispo: Patient may be medically ready tomorrow for discharge. May need acute rehab before going home VS, I&O, 24H, Fishbone Vital Signs/I&O Vital Signs Date Time Temp Pulse Resp B/P (MAP) Pulse Ox O2 Delivery O2 Flow Rate FiO2 12/25/19 14:00 98.2 82 18 130/70 (90) 96 Nasal Cannula 0.5 I&O- Last 24 Hours up to 6 AM 12/25/19 06:00 Intake Total 3315 ml Output Total 2450 ml Balance 865 ml Laboratory Data 24H LABS Laboratory Tests 2 12/24/19 21:01: Bedside Glucose (Misc Panel) 186H 12/24/19 21:23: Urine Color YELLOW, Urine Appearance CLOUDYH, Urine pH 5.0, Urine Specific [place] 1.013, Urine Protein 1+H, Urine Glucose (UA) 1+H, Urine Ketones NEGATIVE, Urine Blood 3+H, Urine Nitrite NEGATIVE, Urine Bilirubin NEGATIVE, Ur ine Urobilinogen 0.2, Urine Leukocyte Esterase TRACEH, Urine WBC (Auto) 4H, Urine RBC (Auto) TNTCH, Urine Hyaline Casts (Auto) 0, Urine Bacteria (Auto) 1+H, Urine Squamous Epithelial Cells 0, Urine Sperm (Auto) 12/25/19 06:31: Immature Granulocyte % (Auto) 0.4, Neutrophils (%) (Auto) 61.3, Lymphocytes (%) (Auto) 19.5L, Monocytes (%) (Auto) 13.2H, Eosinophils (%) (Auto) 5.1H, Basophils (%) (Auto) 0.5, Neutrophils # (Auto) 5.7, Lymphocytes # (Auto) 1.8, Monocytes # (Auto) 1.2H, Eosinophils # (Auto) 0.5, Basophils # (Auto) 0.1, Nucleated Red Blood Cells % (auto) 0.0, Anion Gap 5L, Glomerular Filtration Rate 42.9L, Calcium Level 8.8, Magnesium Level 2.1 12/25/19 11:52: Bedside Glucose (Misc Panel) 152H 12/25/19 16:24: Bedside Glucose (Misc Panel) 185H CBC/BMP Laboratory Tests 12/25/19 06:31 Microbiology Microbiology 12/24/19 Urine Culture, Received Pending 12/22/19 Urine Culture - Final, Complete 12/22/19 Gram Stain - Final, Complete 12/22/19 Neisseria gonorrhoeae Culture - Final, Complete 12/21/19 Blood Culture - Preliminary, Resulted No Growth after 72 hours. All specime... 12/21/19 Blood Culture - Preliminary, Resulted No Growth after 72 hours. All specime... FRANCHESCA ESPITIA DO Dec 25, 2019 20:01
[2019-12-25] MEDS: SENNA 8.6 MG TAB (SENOKOT) PO SCH (21:47)
[2019-12-25 22:00] VITALS: BP 136/90
[2019-12-25 23:20] VITALS: O2SAT 95
[2019-12-26 06:00] VITALS: BP 126/55
[2019-12-26 06:38] LABS: BASO # 0.1 10^3/uL (0.0-0.2); BASO % 0.8 % (0.0-1.0); EOS # 0.5 10^3/uL (0.0-0.5); EOS % 6.2 % (0.0-3.0); HEMATOCRIT 35.8 % (42.0-52.0); HEMOGLOBIN 11.6 g/dl (13.5-17.5); LYMPH # 1.5 10^3/uL (1.5-5.0); MEAN CORPUSCULAR HEMOGLOBIN 27.2 pg (27.0-33.0); MEAN CORPUSCULAR HGB CONC 32.4 g/dl (32.0-36.5); MEAN CORPUSCULAR VOLUME 83.8 fl (80.0-96.0); MONO % 12.1 % (0.0-5.0); NEUTROPHILS # 4.9 10^3/uL (1.5-8.5); NEUTROPHILS % 61.5 % (36.0-66.0); PLATELET COUNT, AUTOMATED 155 10^3/uL (150-450); RED BLOOD COUNT 4.27 10^6/uL (4.30-6.10); WHITE BLOOD COUNT 7.9 10^3/uL (4.0-10.0)
[2019-12-26 06:55] LABS: CALCIUM LEVEL 9.3 MG/DL (8.8-10.2); CREATININE FOR GFR 1.57 MG/DL (0.70-1.30); POTASSIUM SERUM 4.1 MEQ/L (3.5-5.1)
[2019-12-26] MEDS: ADVAIR HFA 230/21MCG INHALER INH SCH (07:23)
[2019-12-26] MEDS ORDERED: MIRALAX *UNIT DOSE* 17GM PACKET PO SCH (09:00)
[2019-12-26] MEDS: HumaLOG INSULIN (NovoLOG) PER UNIT SC SCH ×2 (09:25→12:39)
[2019-12-26] MEDS: LEVEMIR (INSULIN DETEMIR) 1 UNITS/0.01ML SC SCH (09:26)
[2019-12-26] MEDS: DULoxetine 30 MG CAP (CYMBALTA) PO SCH (09:27)
[2019-12-26] MEDS: buPROPion **XL** TABLET 150MG (WELLBUTRIN XL) PO SCH (09:27)
[2019-12-26] MEDS: PRAVASTATIN 20 MG TAB PO SCH (09:27)
[2019-12-26] MEDS: THEOPHYLLINE (THEO-24) 100MG SR **CAPSULE PO SCH (09:27)
[2019-12-26] MEDS: METHADONE 5 MG TAB (S0109) PO SCH (09:28)
[2019-12-26] MEDS: TAMSULOSIN 0.4 MG CAP PO SCH (09:28)
[2019-12-26] MEDS: DOCUSATE SODIUM 100 MG CAP PO SCH (09:28)
[2019-12-26] MEDS: propylthiouraciL 50 MG TAB PO SCH (09:28)
[2019-12-26 09:31] VITALS: BP 121/89
[2019-12-26] MEDS: NYSTATIN 100,000 UNITS/GM TOPICAL PWD 15 GM TOP SCH (09:31)
[2019-12-26 10:38] VITALS: O2SAT 94
[2019-12-26] MEDS ORDERED: PEG1POW PO (13:24)
[2019-12-26] MEDS ORDERED: NYST10006 TOP (13:24)
--- NOTE | 2019-12-26 22:08 | DS.PDOC ---
Discharge Summary General Date of Admission Dec 21, 2019 at 19:49 Date of Discharge Dec 26, 2019 Attending Physician: FRANCHESCA ESPITIA DO Discharge Summary PROCEDURES PERFORMED DURING STAY: None ADMITTING DIAGNOSES: 1. Toxic-Metabolic Encephalopathy 2. Weakness 3. GERMAN on CKD 3 4. Hyperosmolar hyponatremia 5. Hypokalemia 6. Hypercarbia 2/2 OHS 7.Transaminitis 8. COPD / Chronic oxygen-dependent respiratory failure (3 L) 9. Dyslipidemia 10. Hyperthyroidism 11. Chronic Hypertension 12. Chronic back pain 13. Anxiety/depression DISCHARGE DIAGNOSES: 1. Toxic-Metabolic Encephalopathy 2. Weakness 3. GERMAN on CKD 3 4. Hyperosmolar hyponatremia 5. Hypokalemia 6. Hypercarbia 2/2 OHS 7.Transaminitis 8. COPD / Chronic oxygen-dependent respiratory failure (3 L) 9. Dyslipidemia 10. Hyperthyroidism 11. Chronic Hypertension 12. Chronic back pain 13. Anxiety/depression COMPLICATIONS/CHIEF COMPLAINT: Renal Insufficiency. HISTORY OF PRESENT ILLNESS: Mr. Mosley is a 69 year old male who was transferred here from [facility] for higher level of care. Mr. Mosley reports slipping and falling this morning while walking to the bathroom. When his found him on the bathroom floor, he was difficult to arouse. Prior to the fall, he felt dizzy and short of breath, but he denied having blurry vision, ringing in his ears, chest pain, vomiting or diarrhea. He has been feeling thirsty and that he has some difficulties remembering recent events. Based on notes from [facility], when the patient arrived at the hospital, he was more alert, his vitals were within normal limits except for a HR in the 100s. His work up was remarkable for a WBC of 13.8, platelets of 194, Na of 129, K of 2.7, HCO3 of 37, BUN of 180 (was 83 on 10/28/19) , Cr of 4.31 (was 2.1 on 10/28/19 ), AST was 102 and A1C was 7.1%. UA was remarkable for hyaline casts. EKG showed sinus tachycardia with a rate of [address] of the head showed mild atrophy. He was noted to have an O2 sat of 87% on RA but the chest xray was unremarkable. Transfer to [facility] was requested for a higher level of care. HOSPITAL COURSE: During his hospitalization, Tizanidine was held as well as Torsemide, metolazone, and losartan. His SBP was between 120s to 140s. Renal function improved and his strength started to return. Physical therapy worked with him this morning and was okay with him going home with home physical therapy. Of note, on 12/24/2019, he was exposed to physical therapist who is COVID positive. He will need to self quarantine for 14 days from that date. Despite exposure, he has denied fever/chills, dyspnea, cough, or change in taste. Also denies chest pain, abdominal pain, or dysuria. He felt ready for home and was subsequently discharged DISCHARGE MEDICATIONS: Please see below. ALLERGIES: Please see below. PHYSICAL EXAMINATION ON DISCHARGE: VITAL SIGNS: Please see below. GENERAL: Comfortable, in no apparent distress. HEENT: Head normocephalic/atraumatic, EOMI, sclera clear. NECK: Supple RESPIRATORY: Lungs clear to auscultation bilaterally, no rales, wheeze or rhonchi. CARDIOVASCULAR: Regular rate and rhythm. ABDOMEN: Soft, nontender, no guarding or rebound tenderness. Normal bowel sounds. MUSCLE SKELETAL: No pitting edema NEUROLOGICAL: CN 312 grossly intact PSYCHOLOGICAL: Normal mood and affect LABORATORY DATA: Please see below. IMAGING: MRI brain No acute intracranial abnormality. [id number] volume loss and minimal small vessel ischemic changes. Trace fluid in bilateral mastoid air cells. Minimal sinus disease. PROGNOSIS: Stable ACTIVITY: Walk with walker DIET: 2 g sodium DISCHARGE PLAN: Home with home care DISPOSITION: Home, Self-Care. DISCHARGE INSTRUCTIONS: 1. Follow-up with her PCP within 5 days 2. Follow-up with a horse identifier within 5 days 3. Do not restart tizanidine at this time. Has not needed this medication while inpatient 4. Do not restart torsemide, metolazone, and losartan. Speak with your PCP or horse identifier before restarting 5. Weight self daily DISCHARGE CONDITION: Stable. Total time spent on discharge planning, discharge summary, and medication reconciliation: 35 minutes Vital Signs/I&Os Vital Signs Date Time Temp Pulse Resp B/P (MAP) Pulse Ox O2 Delivery O2 Flow Rate FiO2 12/26/19 10:38 94 Room Air 12/26/19 09:42 1.0 12/26/19 09:31 97 121/89 12/26/19 06:00 97.5 18 I&O- Last 24 Hours up to 6 AM 12/26/19 06:00 Intake Total 3870 ml Output Total 1500 ml Balance 2370 ml Laboratory Data Labs 24H Laboratory Tests 2 12/26/19 06:18: Immature Granulocyte % (Auto) 0.4, Neutrophils (%) (Auto) 61.5, Lymphocytes (%) (Auto) 19.0L, Monocytes (%) (Auto) 12.1H, Eosinophils (%) (Auto) 6.2H, Basophils (%) (Auto) 0.8, Neutrophils # (Auto) 4.9, Lymphocytes # (Auto) 1.5, Monocytes # (Auto) 1.0H, Eosinophils # (Auto) 0.5, Basophils # (Auto) 0.1, Nucleated Red Blood Cells % (auto) 0.0, Anion Gap 5L, Glomerular Filtration Rate 47.0L, Calcium Level 9.3, Magnesium Level 2.0 12/26/19 11:43: Bedside Glucose (Misc Panel) 201H CBC/BMP Laboratory Tests 12/26/19 06:18 FSBS Laboratory Tests Test 12/26/19 11:43 Range/Units Bedside Glucose (Misc Panel) 201 80-115 MG/DL Microbiology Microbiology 12/24/19 Urine Culture, Received Pending 12/22/19 Urine Culture - Final, Complete 12/22/19 Gram Stain - Final, Complete 12/22/19 Neisseria gonorrhoeae Culture - Final, Complete 12/21/19 Blood Culture - Final, Complete NO GROWTH AFTER 5 DAYS 12/21/19 Blood Culture - Final, Complete NO GROWTH AFTER 5 DAYS Discharge Medications Scheduled Bupropion HCl (Bupropion Xl) 300 Mg Tab, 300 MG PO DAILY, (Reported) Calcitriol (Calcitriol) 0.25 Mcg Capsule, 0.25 MCG PO 5XW, (Reported) THURSDAY THROUGH THURSDAY Cetirizine HCl (Cetirizine HCl) 10 Mg Tablet, 10 MG PO DAILY, (Reported) Docusate Sodium (Docusate Sodium) 100 Mg Capsule, 100 MG PO BID, (Reported) Duloxetine HCl (Duloxetine HCl) 60 Mg Cap, 60 MG PO BID, (Reported) Hydroxyzine Pamoate (Hydroxyzine Pamoate) 50 Mg Cap, 50 MG PO BID, (Reported) Insulin Aspart (Novolog Flexpen) 100 Unit/Ml Inj, 10 UNITS SQ WM, (Reported) Insulin Glargine,Hum.rec.anlog (Basaglar Kwikpen U-100) 100 Unit/Ml Inj, 65 UNIT SQ BID, (Reported) Methadone HCl (Methadone HCl) 5 Mg Tab, 5 MG PO TID, (Reported) Nystatin (Nystop) 60 Gm Powder, 1 DOSE TOP BID Omeprazole (Omeprazole) 20 Mg Capsule.dr, 20 MG PO DAILY, (Reported) Polyethylene Glycol 3350 (Polyethylene Glycol 3350) 17 Gm Powd.pack, 1 PKT PO DAILY Pravastatin Sodium (Pravastatin Sodium) 40 Mg Tab, 40 MG PO DAILY, (Reported) Propylthiouracil (Propylthiouracil) 50 Mg Tab, 50 MG PO BID, (Reported) Salmeterol/Fluticasone (Advair 500-50 Diskus) 1 Each Blst.w.dev, 1 PUFF INH BID, (Reported) Sennosides (Senna) 8.6 Mg Tablet, 2 TAB PO QHS, (Reported) Tamsulosin HCl (Flomax) 0.4 Mg Capsule, 0.4 MG PO DAILY, (Reported) Theophylline Anhydrous (Peyman-24) 300 Mg Cap.er.24h, 300 MG PO BID, (Reported) dilTIAZem HCl (Diltiazem 24Hr Cd) 240 Mg Cap.er.24h, 240 MG PO DAILY, (Reported) Scheduled PRN Ipratropium/Albuterol Sulfate (Combivent Respimat 20-100 Mcg) 1 Aer Aer, 1 PUFF INH QID PRN for SHORTNESS OF BREATH, (Reported) Allergies Coded Allergies: No Known Drug Allergies (Verified Allergy, Unknown, 06/04/18) FRANCHESCA ESPITIA DO Dec 26, 2019 22:08
== END 2019-12-26 15:08 | disposition home health service (06) | DRG 682 ==
LOC: M MSPAV 19:49
PROVIDERS: ADMIT Family Medicine; ATTEND Internal Medicine
DX: N17.9 Acute kidney failure, unspecified (principal); G92 Toxic encephalopathy; E87.1 Hypo-osmolality and hyponatremia; J96.10 Chronic respiratory failure, unspecified whether with hypoxia or hypercapnia; E66.2 Morbid (severe) obesity with alveolar hypoventilation; N18.31 Chronic kidney disease, stage 3a; J44.9 Chronic obstructive pulmonary disease, unspecified; R55 Syncope and collapse; E78.5 Hyperlipidemia, unspecified; I12.9 Hypertensive chronic kidney disease with stage 1 through stage 4 chronic kidney disease, or unspecified chronic kidney disease; F41.9 Anxiety disorder, unspecified; F32.9 Major depressive disorder, single episode, unspecified; Z99.81 Dependence on supplemental oxygen; M54.5 Low back pain; Z79.899 Other long term (current) drug therapy; Z79.4 Long term (current) use of insulin; E11.9 Type 2 diabetes mellitus without complications; E55.9 Vitamin D deficiency, unspecified; Z87.891 Personal history of nicotine dependence; G47.33 Obstructive sleep apnea (adult) (pediatric); Z91.19 Patient's noncompliance with other medical treatment and regimen; E87.6 Hypokalemia; E05.90 Thyrotoxicosis, unspecified without thyrotoxic crisis or storm

== ENCOUNTER 2020-01-10 15:25 | Inpatient (IN) | payer MEDICARE ==
[~2020-01-10] VITALS: Ht 177.8 cm; Wt 130.4 kg
[~2020-01-10 15:25] MED LIST changes: +ADV500INH INH; +CALC1CAP31 PO; +CETI10TA4 PO; +DILT240C83 PO; +DOCU100C17 PO; +FLOM0.4C39 PO; +LOSA50TA88 PO; +METO25TA PO; +NYST10006 TOP; +OMEP1CAP73 PO; +PEG1POW PO; +SENN8.6T28 PO; +TIZA4TAB4 PO; +TORS20TA2 PO
--- NOTE | 2020-01-10 16:57 | ECGEPIP ---
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
--- NOTE | 2020-01-10 16:58 | REP ---
INDICATION: sob. COMPARISON: 03/27/2015. TECHNIQUE: AP portable upright chest FINDINGS: The portable chest is quite lordotic limiting evaluation of the posterior lower lung zones. Heart size is magnified but still mildly prominent pulmonary vascular redistribution with the suspected pulmonary interstitial edema could not exclude a small left effusion. Significant effusions could be obscured posteriorly in the lower lung zones. Airspace disease may be LV lower edema or infiltrates. Airway is midline. Bones show no change from prior study IMPRESSION: Cardiomegaly with pulmonary vascular redistribution and interstitial edema. Patchy alveolar edema or pneumonitis may be suspected as well in the perihilar regions. Suspected left effusion. See comments above. <Electronically signed by Hayder Hammond > 01/10/20 [id number]
[2020-01-10 17:13] LABS: BASO # 0.1 10^3/uL (0.0-0.2); BASO % 0.8 % (0.0-1.0); EOS # 0.4 10^3/uL (0.0-0.5); EOS % 5.7 % (0.0-3.0); HEMATOCRIT 31.3 % (42.0-52.0); HEMOGLOBIN 9.6 g/dl (13.5-17.5); LYMPH # 1.2 10^3/uL (1.5-5.0); LYMPH % 19.2 % (24.0-44.0); MEAN CORPUSCULAR HEMOGLOBIN 26.7 pg (27.0-33.0); MEAN CORPUSCULAR HGB CONC 30.7 g/dl (32.0-36.5); MEAN CORPUSCULAR VOLUME 86.9 fl (80.0-96.0); MONO # 0.9 10^3/uL (0.0-0.8); MONO % 14.1 % (0.0-5.0); NEUTROPHILS # 3.7 10^3/uL (1.5-8.5); NEUTROPHILS % 58.5 % (36.0-66.0); PLATELET COUNT, AUTOMATED 341 10^3/uL (150-450); WHITE BLOOD COUNT 6.4 10^3/uL (4.0-10.0)
[2020-01-10] MEDS ORDERED: FUROSEMIDE 40MG/4ML VIAL (J1940) IV ONE (17:15)
[2020-01-10 17:20] LABS: INR 1.12; PROTHROMBIN TIME 14.6 SECONDS (12.5-14.3)
[2020-01-10 17:21] LABS: PARTIAL THROMBOPLASTIN TIME 30.5 SECONDS (24.2-38.5)
[2020-01-10 17:43] LABS: ALBUMIN 2.8 GM/DL (3.2-5.2); ALT/SGPT 31 U/L (12-78); BILIRUBIN,DIRECT < 0.1 MG/DL (0.0-0.2); BILIRUBIN,TOTAL 0.3 MG/DL (0.2-1.0); BLOOD UREA NITROGEN 9 MG/DL (7-18); CALCIUM LEVEL 9.5 MG/DL (8.8-10.2); CARBON DIOXIDE LEVEL 34 MEQ/L (21-32); CHLORIDE LEVEL 107 MEQ/L (98-107); CK-MB VALUE MASS 4.3 NG/ML (<3.6); CPK CREATINE PHOSPHOKINASE 141 U/L (39-308); CREATININE FOR GFR 1.03 MG/DL (0.70-1.30); FREE T4 1.06 NG/DL (0.76-1.46); GLOMERULAR FILTRATION RATE > 60.0 (>49); GLUCOSE, FASTING 99 MG/DL (70-100); MB/CK RELATIVE INDEX 3.05 (< OR =4); NT-PRO BNP 598 PG/ML (<125); POTASSIUM SERUM 4.6 MEQ/L (3.5-5.1); SODIUM LEVEL 145 MEQ/L (136-145); THYROID STIMULATING HORMONE 0.219 uIU/ML (0.358-3.740); TOTAL PROTEIN 6.1 GM/DL (6.4-8.2); TROPONIN I < 0.02 NG/ML (< 0.10)
[2020-01-10] MEDS ORDERED: LIDOCAINE 5% (LIDODERM) PATCH TD SCH (18:45)
[2020-01-10] MEDS ORDERED: METH5TA PO (19:16)
[2020-01-10] MEDS ORDERED: ABIL1TAB11 PO (19:16)
[2020-01-10] MEDS ORDERED: LOSA50TA88 PO (19:16)
[2020-01-10] MEDS ORDERED: COMBIVENT RESPIMAT 100-20MCG INHALER 4GM INH PRN (19:45)
[2020-01-10] MEDS ORDERED: METHADONE 5 MG TAB (S0109) PO PRN (19:45)
[2020-01-10] MEDS ORDERED: DEXTROSE 50% 50 ML SYRINGE IV PRN (19:45)
[2020-01-10] MEDS ORDERED: GLUCOSE 4GM CHEW TABLET PO PRN (19:45)
[2020-01-10] MEDS ORDERED: GLUCAGON INJ 1MG VIAL SC PRN (19:45)
--- NOTE | 2020-01-10 19:46 | HPEPDOC ---
General Date of Admission Jan 10, 2020 at 18:24 Date of Service: Jan 10, 2020 Attending Physician: FRANCHESCA ESPITIA DO Chief Complaint The patient is a 69-year-old male admitted with a reason for visit of acute decompensated CHF. Source: Patient Exam Limitations: No limitations History of Present Illness Mr. 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 He was recently here from 12/21/2019 to 12/26/2019 for GERMAN and weakness. He was instructed to measure his weight at home and adjust diuretics based off of weight increased. He did measure his weight initially, but then stopped and did not pay attention to his weight. He tells me his physicians are changing his medications, so he is not too keen on what he is taking. Patient tells me he does not like adding salt to foods. He sometimes boils ham to remove the salt. He does eat a lot of canned foods. Since discharge, he became progressively more short of breath and gained weight. 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 He was sent to the ER for evaluation. BNP was 598. CXR was suggestive of CHF. He was given a dose of IV lasix and admission was called. Home Medications Scheduled Bupropion HCl (Bupropion Xl) 300 Mg Tab, 300 MG PO DAILY, (Reported) Calcitriol (Calcitriol) 0.25 Mcg Capsule, 0.25 MCG PO 5XW, (Reported) THURSDAY THROUGH THURSDAY Cetirizine HCl (Cetirizine HCl) 10 Mg Tablet, 10 MG PO DAILY, (Reported) Docusate Sodium (Docusate Sodium) 100 Mg Capsule, 100 MG PO BID, (Reported) Duloxetine HCl (Duloxetine HCl) 60 Mg Cap, 60 MG PO BID, (Reported) Hydroxyzine Pamoate (Hydroxyzine Pamoate) 50 Mg Cap, 50 MG PO BID, (Reported) Insulin Aspart (Novolog Flexpen) 100 Unit/Ml Inj, 10 UNITS SQ WM, (Reported) Insulin Glargine,Hum.rec.anlog (Basaglar Kwikpen U-100) 100 Unit/Ml Inj, 65 UNIT SQ BID, (Reported) Methadone HCl (Methadone HCl) 5 Mg Tab, 5 MG PO TID, (Reported) Nystatin (Nystop) 60 Gm Powder, 1 DOSE TOP BID Omeprazole (Omeprazole) 20 Mg Capsule.dr, 20 MG PO DAILY, (Reported) Polyethylene Glycol 3350 (Polyethylene Glycol 3350) 17 Gm Powd.pack, 1 PKT PO DAILY Pravastatin Sodium (Pravastatin Sodium) 40 Mg Tab, 40 MG PO DAILY, (Reported) Propylthiouracil (Propylthiouracil) 50 Mg Tab, 50 MG PO BID, (Reported) Salmeterol/Fluticasone (Advair 500-50 Diskus) 1 Each Blst.w.dev, 1 PUFF INH BID, (Reported) Sennosides (Senna) 8.6 Mg Tablet, 2 TAB PO QHS, (Reported) Tamsulosin HCl (Flomax) 0.4 Mg Capsule, 0.4 MG PO DAILY, (Reported) Theophylline Anhydrous (Peyman-24) 300 Mg Cap.er.24h, 300 MG PO BID, (Reported) dilTIAZem HCl (Diltiazem 24Hr Cd) 240 Mg Cap.er.24h, 240 MG PO DAILY, (Reported) Scheduled PRN Ipratropium/Albuterol Sulfate (Combivent Respimat 20-100 Mcg) 1 Aer Aer, 1 PUFF INH QID PRN for SHORTNESS OF BREATH, (Reported) Allergies Coded Allergies: No Known Drug Allergies (Verified Allergy, Unknown, 06/04/18) Past Medical History Medical History 1. Type 2 diabetes 2. drapery examiner's pneumoconiosis 3. Chronic hypoxic respiratory failure 4. Dyslipidemia 5. Hyperthyroidism 6. Vitamin D deficiency 7. Hypertension 8. BIN 9. Chronic back pain 10. Anxiety/depression 11. Chronic Methadone use Surgical History 1. Right knee 2. Left elbow 3. Tonsillectomy and adenoidectomy Family History Diabetes Social History * Smoker: Denies Alcohol: Denies Drugs: denies A-FIB/CHADSVASC A-FIB History Current/History of A-Fib/PAF?: No Review of Systems Constitutional: Denies: Chills, Fever Eyes: Denies: Pain ENT: Denies: Head Aches, Sore Throat Skin: Reports: Rash (lower abdomen bruising) Pulmonary: Reports: Dyspnea Cardiovascular: Reports: Edema; Denies: Chest Pain Gastrointestinal: Reports: Diarrhea; Denies: Nausea, Abdominal Pain, Constipation Genitourinary: Denies: Dysuria Hematologic: Reports: Bruising Endocrine: Denies: Polydipsia, Polyphagia, Polyuria Musculoskeletal: Reports: Back Pain, Shoulder Pain Psych: Reports: Anxiety, Depression Physical Examination General Exam: Positive: Alert, Cooperative, Mild Distress Eye Exam: Positive: EOMI; Negative: Sclera icteric ENT Exam: Positive: Atraumatic, Tongue Midline Neck Exam: Positive: Supple Chest Exam: Positive: Rales Heart Exam: Positive: Rate Normal, Regular Rhythm Abdomen Exam: Positive: Normal bowel sounds, Soft, Other (obese) Extremity Exam: Positive: Edema (bilateral) Neuro Exam: Positive: Cranial Nerves 3-12 NL Psych Exam: Positive: Mental status NL, Mood NL Vital Signs Vital Signs Date Time Temp Pulse Resp B/P (MAP) Pulse Ox O2 Delivery O2 Flow Rate FiO2 01/10/20 18:45 78 96 01/10/20 17:46 150/63 (92) 01/10/20 17:40 Nasal Cannula 2.0 01/10/20 17:38 20 01/10/20 15:26 98.1 Laboratory Data Labs 24H Laboratory Tests 2 01/10/20 16:37: Immature Granulocyte % (Auto) 1.7, Neutrophils (%) (Auto) 58.5, Lymphocytes (%) (Auto) 19.2L, Monocytes (%) (Auto) 14.1H, Eosinophils (%) (Auto) 5.7H, Basophils (%) (Auto) 0.8, Neutrophils # (Auto) 3.7, Lymphocytes # (Auto) 1.2L, Monocytes # (Auto) 0.9H, Eosinophils # (Auto) 0.4, Basophils # (Auto) 0.1, Nucleated Red Blood Cells % (auto) 0.3H, Prothrombin Time 14.6H, Prothromb Time International Ratio 1.12, Activated Partial Thromboplast Time 30.5, Anion Gap 4L, Glomerular Filtration Rate > 60.0, Calcium Level 9.5, Total Bilirubin 0.3, Direct Bilirubin < 0.1, Aspartate Amino Transf (AST/SGOT) 18, Alanine Aminotransferase (ALT/SGPT) 31, Alkaline Phosphatase 97, Total Creatine Kinase 141, Creatine Kinase MB 4.3H, Creatine Kinase MB Relative Index 3.05, Troponin I < 0.02, DW-Zic-Q-Type Natriuretic Peptide 598H, Total Protein 6.1L, Albumin 2.8L, Albumin/Globulin Ratio 0.8, Thyroid Stimulating Hormone (TSH) 0.219L, Free Thyroxine 1.06 CBC/BMP Laboratory Tests 01/10/20 16:37 Microbiology Microbiology 01/10/20 Respiratory Virus Panel (PCR) ([facility]) - Final, Complete Assessment/Plan Mr. 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 He has been non-compliant with weighing himself and with diet. Will diurese and monitor electrolytes and renal function. Plan / VTE VTE Prophylaxis Ordered?: Yes Plan Plan 1. Decompensated CHF exacerbation -Diffuse anasarca and dyspnea -Order echocardiogram -2gm sodium diet with 1800mL restriction -Daily weights and I/O's -Lasix IV BID 2. COPD -Stable, no wheezing -Continue Theophylline, Advair, and PRN duonebs -Check theophylline level -Chronic hypoxic respiratory failure chronically on 2L 3. DM2 -Will reduce dosages of long acting from 65u BID to 45u BID and adjust as needed -Sliding scale insulin -Carbohydrate consistent diet 4. Hypertension -Continue losartan and diltiazem 5. Hyperthyroidism -PTU 6. BPH -Tamsulosin 7. Insomnia -Trial of Ramelteon 8. GERD -Omeprazole 9. Chronic pain -Methadone -Add on lidocaine patch to legs bilaterally 10. DVT ppx -Lovenox FRANCHESCA ESPITIA DO Jan 10, 2020 19:46
[2020-01-10 20:49] VITALS: BP 124/62
[2020-01-10] MEDS: HumaLOG INSULIN (NovoLOG) PER UNIT SC SCH (21:00)
[2020-01-10] MEDS: **NOTE PATIENT COMMENT** MISC XX SCH (21:00)
[2020-01-10] MEDS: DULoxetine 30 MG CAP (CYMBALTA) PO SCH (21:24)
[2020-01-10] MEDS: DOCUSATE SODIUM 100 MG CAP PO SCH (21:25)
[2020-01-10] MEDS: hydrOXYzine 50 MG TAB PO SCH (21:25)
[2020-01-10] MEDS: RAMELTEON 8 MG TAB (ROZEREM) PO SCH (21:25)
[2020-01-10] MEDS: SENNA 8.6 MG TAB (SENOKOT) PO SCH (21:25)
[2020-01-10] MEDS: CETIRIZINE (ZyrTEC) 10 MG TAB PO SCH (21:25)
[2020-01-10] MEDS: METHADONE 5 MG TAB (S0109) PO SCH (21:27)
[2020-01-10] MEDS: LEVEMIR (INSULIN DETEMIR) 1 UNITS/0.01ML SC SCH (21:33)
[2020-01-10] MEDS: propylthiouraciL 50 MG TAB PO SCH (22:31)
[2020-01-10] MEDS: THEOPHYLLINE (THEO-24) 100MG SR **CAPSULE PO SCH (22:31)
[2020-01-11] MEDS: LIDOCAINE 5% (LIDODERM) PATCH TD PRN ×2 (00:35→09:30)
[2020-01-11 06:00] VITALS: BP 148/64
[2020-01-11 06:13] LABS: HEMOGLOBIN 9.5 g/dl (13.5-17.5); MEAN CORPUSCULAR HEMOGLOBIN 26.5 pg (27.0-33.0); MEAN CORPUSCULAR HGB CONC 30.6 g/dl (32.0-36.5); MEAN CORPUSCULAR VOLUME 86.4 fl (80.0-96.0); PLATELET COUNT, AUTOMATED 331 10^3/uL (150-450); RED BLOOD COUNT 3.59 10^6/uL (4.30-6.10); WHITE BLOOD COUNT 6.2 10^3/uL (4.0-10.0)
[2020-01-11 06:32] LABS: BLOOD UREA NITROGEN 10 MG/DL (7-18); CALCIUM LEVEL 9.2 MG/DL (8.8-10.2); CARBON DIOXIDE LEVEL 34 MEQ/L (21-32); CHLORIDE LEVEL 105 MEQ/L (98-107); CREATININE FOR GFR 1.08 MG/DL (0.70-1.30); GLOMERULAR FILTRATION RATE > 60.0 (>49); GLUCOSE, FASTING 42 MG/DL (70-100); POTASSIUM SERUM 3.8 MEQ/L (3.5-5.1); SODIUM LEVEL 142 MEQ/L (136-145)
[2020-01-11] MEDS: HumaLOG INSULIN (NovoLOG) PER UNIT SC SCH ×4 (07:30→21:00)
[2020-01-11] MEDS: ADVAIR HFA 230/21MCG INHALER INH SCH ×2 (08:28→19:16)
[2020-01-11 08:31] VITALS: O2SAT 95
[2020-01-11] MEDS: LEVEMIR (INSULIN DETEMIR) 1 UNITS/0.01ML SC SCH ×2 (09:00→21:11)
[2020-01-11] MEDS: DOCUSATE SODIUM 100 MG CAP PO SCH ×2 (09:23→21:11)
[2020-01-11] MEDS: ENOXAPARIN 40MG/0.4ML SYRINGE (J1650 PER 10MG) SC SCH (09:23)
[2020-01-11] MEDS: METHADONE 5 MG TAB (S0109) PO SCH ×2 (09:23→21:22)
[2020-01-11] MEDS: TAMSULOSIN 0.4 MG CAP PO SCH (09:24)
[2020-01-11] MEDS: hydrOXYzine 50 MG TAB PO SCH ×2 (09:29→21:11)
[2020-01-11] MEDS: OMEPRAZOLE 20 MG CAP PO SCH (09:29)
[2020-01-11] MEDS: LOSARTAN 50MG TABLET PO SCH (09:29)
[2020-01-11] MEDS: CALCITRIOL 0.25 MCG CAP (S0169) PO SCH (09:29)
[2020-01-11] MEDS: PRAVASTATIN 20 MG TAB PO SCH (09:29)
[2020-01-11] MEDS: DULoxetine 30 MG CAP (CYMBALTA) PO SCH ×2 (09:29→21:11)
[2020-01-11] MEDS: buPROPion **XL** TABLET 150MG (WELLBUTRIN XL) PO SCH (09:29)
[2020-01-11] MEDS: THEOPHYLLINE (THEO-24) 100MG SR **CAPSULE PO SCH ×2 (09:29→21:11)
[2020-01-11] MEDS: propylthiouraciL 50 MG TAB PO SCH ×2 (09:30→21:11)
[2020-01-11] MEDS: FUROSEMIDE 40MG/4ML VIAL (J1940) IV SCH ×2 (09:30→17:59)
--- NOTE | 2020-01-11 13:32 | IPNPDOC ---
Subjective Date Seen The patient was seen on 01/11/20. Subjective Chief Complaint/HPI Mr. 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 This morning, he was still short of breath. Denies any fever/chills, chest pain, abdominal pain, or dysuria. 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 He cannot lay flat due to his heart and lung disease. Objective Physical Examination General Exam: Positive: Alert, Cooperative, Mild Distress Eye Exam: Positive: EOMI; Negative: Sclera icteric ENT Exam: Positive: Atraumatic, Tongue Midline Neck Exam: Positive: Supple Chest Exam: Positive: Rales Heart Exam: Positive: Rate Normal, Regular Rhythm Abdomen Exam: Positive: Normal bowel sounds, Soft, Other (obese) Extremity Exam: Positive: Edema (bilateral) Neuro Exam: Positive: Cranial Nerves 3-12 NL Psych Exam: Positive: Mental status NL, Mood NL Assessment /Plan Assessment Mr. 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 He has been non-compliant with weighing himself and with diet. Will diurese and monitor electrolytes and renal function. Plan/VTE VTE Prophylaxis Ordered?: Yes Plan 1. Decompensated CHF exacerbation -Diffuse anasarca and dyspnea -Order echocardiogram -2gm sodium diet with 1800mL restriction -Daily weights and I/O's -Lasix IV BID 2. COPD -Stable, no wheezing -Continue Theophylline, Advair, and PRN duonebs -Check theophylline level -Chronic hypoxic respiratory failure chronically on 2L 3. DM2 -Will reduce dosages of long acting from 65u BID to 45u BID and adjust as needed -Sliding scale insulin -Carbohydrate consistent diet 4. Hypertension -Continue losartan and diltiazem 5. Hyperthyroidism -PTU 6. BPH -Tamsulosin 7. Insomnia -Trial of Ramelteon 8. GERD -Omeprazole 9. Chronic pain -Methadone -Add on lidocaine patch to legs bilaterally 10. 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 He cannot lay flat due to his heart and lung disease. VS, I&O, [facility] Vital Signs/I&O Vital Signs Date Time Temp Pulse Resp B/P (MAP) Pulse Ox O2 Delivery O2 Flow Rate FiO2 01/11/20 09:30 2.0 01/11/20 09:28 86 140/70 01/11/20 08:31 95 Nasal Cannula 01/11/20 06:00 98.0 20 I&O- Last 24 Hours up to 6 AM 01/11/20 06:00 Intake Total 720 ml Output Total 0 ml Balance 720 ml Laboratory Data 24H LABS Laboratory Tests 2 01/10/20 16:37: Immature Granulocyte % (Auto) 1.7, Neutrophils (%) (Auto) 58.5, Lymphocytes (%) (Auto) 19.2L, Monocytes (%) (Auto) 14.1H, Eosinophils (%) (Auto) 5.7H, Basophils (%) (Auto) 0.8, Neutrophils # (Auto) 3.7, Lymphocytes # (Auto) 1.2L, Monocytes # (Auto) 0.9H, Eosinophils # (Auto) 0.4, Basophils # (Auto) 0.1, Nucleated Red Blood Cells % (auto) 0.3H, Prothrombin Time 14.6H, Prothromb Time International Ratio 1.12, Activated Partial Thromboplast Time 30.5, Anion Gap 4L, Glomerular Filtration Rate > 60.0, Calcium Level 9.5, Total Bilirubin 0.3, Direct Bilirubin < 0.1, Aspartate Amino Transf (AST/SGOT) 18, Alanine Aminotransferase (ALT/SGPT) 31, Alkaline Phosphatase 97, Total Creatine Kinase 141, Creatine Kinase MB 4.3H, Creatine Kinase MB Relative Index 3.05, Troponin I < 0.02, YB-Smx-Y-Type Natriuretic Peptide 598H, Total Protein 6.1L, Albumin 2.8L, Albumin/Globulin Ratio 0.8, Thyroid Stimulating Hormone (TSH) 0.219L, Free Thyroxine 1.06 01/10/20 21:00: Bedside Glucose (Misc Panel) 154H 01/11/20 05:51: Nucleated Red Blood Cells % (auto) 0.3H, Anion Gap 3L, Glomerular Filtration Rate > 60.0, Calcium Level 9.2, Magnesium Level 2.0, Theophylline Level 9.2L 01/11/20 11:20: Bedside Glucose (Misc Panel) 95 CBC/BMP Laboratory Tests 01/10/20 16:37 01/11/20 05:51 Microbiology Microbiology 01/10/20 Respiratory Virus Panel (PCR) ([facility]) - Final, Complete FRANCHESCA ESPITIA DO Jan 11, 2020 13:32
[2020-01-11 14:00] VITALS: BP 130/68
[2020-01-11] MEDS: CETIRIZINE (ZyrTEC) 10 MG TAB PO SCH (21:11)
[2020-01-11] MEDS: RAMELTEON 8 MG TAB (ROZEREM) PO SCH (21:11)
[2020-01-11] MEDS: SENNA 8.6 MG TAB (SENOKOT) PO SCH (21:11)
[2020-01-11] MEDS: **NOTE PATIENT COMMENT** MISC XX SCH (21:12)
[2020-01-11 22:00] VITALS: BP 178/76
[2020-01-12] MEDS ORDERED: diphenhydrAMINE 25MG CAP PO ONE (01:45)
[2020-01-12 06:00] VITALS: BP 135/61
[2020-01-12 06:02] LABS: HEMATOCRIT 33.7 % (42.0-52.0); HEMOGLOBIN 10.2 g/dl (13.5-17.5); MEAN CORPUSCULAR HEMOGLOBIN 25.9 pg (27.0-33.0); MEAN CORPUSCULAR HGB CONC 30.3 g/dl (32.0-36.5); MEAN CORPUSCULAR VOLUME 85.5 fl (80.0-96.0); PLATELET COUNT, AUTOMATED 350 10^3/uL (150-450); RED BLOOD COUNT 3.94 10^6/uL (4.30-6.10); WHITE BLOOD COUNT 7.5 10^3/uL (4.0-10.0)
[2020-01-12 06:19] LABS: BLOOD UREA NITROGEN 12 MG/DL (7-18); CALCIUM LEVEL 9.4 MG/DL (8.8-10.2); CARBON DIOXIDE LEVEL 35 MEQ/L (21-32); CHLORIDE LEVEL 100 MEQ/L (98-107); CREATININE FOR GFR 1.25 MG/DL (0.70-1.30); GLOMERULAR FILTRATION RATE > 60.0 (>49); GLUCOSE, FASTING 108 MG/DL (70-100); MAGNESIUM LEVEL 1.9 MG/DL (1.8-2.4); POTASSIUM SERUM 3.9 MEQ/L (3.5-5.1); SODIUM LEVEL 140 MEQ/L (136-145)
[2020-01-12] MEDS: HumaLOG INSULIN (NovoLOG) PER UNIT SC SCH ×4 (07:30→21:00)
[2020-01-12] MEDS: LEVEMIR (INSULIN DETEMIR) 1 UNITS/0.01ML SC SCH ×2 (08:06→21:00)
[2020-01-12] MEDS: CALCITRIOL 0.25 MCG CAP (S0169) PO SCH (08:26)
[2020-01-12] MEDS: DULoxetine 30 MG CAP (CYMBALTA) PO SCH ×2 (08:26→21:22)
[2020-01-12] MEDS: THEOPHYLLINE (THEO-24) 100MG SR **CAPSULE PO SCH ×2 (08:26→21:22)
[2020-01-12] MEDS: hydrOXYzine 50 MG TAB PO SCH ×2 (08:26→21:22)
[2020-01-12] MEDS: LOSARTAN 50MG TABLET PO SCH (08:27)
[2020-01-12] MEDS: buPROPion **XL** TABLET 150MG (WELLBUTRIN XL) PO SCH (08:27)
[2020-01-12] MEDS: DOCUSATE SODIUM 100 MG CAP PO SCH ×2 (08:27→21:22)
[2020-01-12] MEDS: PRAVASTATIN 20 MG TAB PO SCH (08:27)
[2020-01-12] MEDS: propylthiouraciL 50 MG TAB PO SCH ×2 (08:27→21:21)
[2020-01-12] MEDS: TAMSULOSIN 0.4 MG CAP PO SCH (08:28)
[2020-01-12] MEDS: ENOXAPARIN 40MG/0.4ML SYRINGE (J1650 PER 10MG) SC SCH (08:29)
[2020-01-12] MEDS: FUROSEMIDE 40MG/4ML VIAL (J1940) IV SCH ×2 (08:29→17:26)
[2020-01-12] MEDS: OMEPRAZOLE 20 MG CAP PO SCH (08:29)
[2020-01-12] MEDS: METHADONE 5 MG TAB (S0109) PO SCH ×2 (08:53→21:22)
[2020-01-12] MEDS: ADVAIR HFA 230/21MCG INHALER INH SCH ×2 (09:09→19:59)
[2020-01-12] MEDS ORDERED: MOM 30ML SUSPENSION UDC PO PRN (11:45)
[2020-01-12] MEDS: MIRALAX *UNIT DOSE* 17GM PACKET PO SCH (12:51)
[2020-01-12] MEDS ORDERED: FUROSEMIDE 40MG/4ML VIAL (J1940) IV ONE (13:00)
--- NOTE | 2020-01-12 13:42 | IPNPDOC ---
Subjective Date Seen The patient was seen on 01/12/20. Subjective Chief Complaint/HPI Mr. 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 He denies any fever, chest pain, abdominal pain, or dysuria. He is still short of breath. Will add on additional IV lasix to increase diuresis. Objective Physical Examination General Exam: Positive: Alert, Cooperative, Mild Distress Eye Exam: Positive: EOMI; Negative: Sclera icteric ENT Exam: Positive: Atraumatic, Tongue Midline Neck Exam: Positive: Supple Chest Exam: Positive: Rales Heart Exam: Positive: Rate Normal, Regular Rhythm Abdomen Exam: Positive: Normal bowel sounds, Soft, Other (obese) Extremity Exam: Positive: Edema (bilateral) Neuro Exam: Positive: Cranial Nerves 3-12 NL Psych Exam: Positive: Mental status NL, Mood NL Assessment /Plan Assessment Mr. 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 He has been non-compliant with weighing himself and with diet. Will diurese and monitor electrolytes and renal function. Plan/VTE VTE Prophylaxis Ordered?: Yes Plan 1. Decompensated CHF exacerbation -Diffuse anasarca and dyspnea -Order echocardiogram -2gm sodium diet with 1800mL restriction -Daily weights and I/O's -Lasix IV BID 2. COPD/muck miner blasting's pneumoconiosis -Stable, no wheezing -Continue Theophylline, Advair, and PRN duonebs -Theophylline level low -Chronic hypoxic respiratory failure chronically on 2L 3. DM2 -Will reduce dosages of long acting from 65u BID to 45u BID and adjust as needed -Sliding scale insulin -Carbohydrate consistent diet 4. Hypertension -Continue losartan and diltiazem 5. Hyperthyroidism -PTU 6. BPH -Tamsulosin 7. Insomnia -Trial of Ramelteon 8. GERD -Omeprazole 9. Chronic pain/Arthritis -Methadone -Add on lidocaine patch to legs bilaterally 10. 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 He cannot lay flat due to his heart and lung disease. In addition, he has arthritis of his hands and back which makes it difficult for him to move. VS, I&O, 24H, Fishbone Vital Signs/I&O Vital Signs Date Time Temp Pulse Resp B/P (MAP) Pulse Ox O2 Delivery O2 Flow Rate FiO2 01/12/20 08:28 78 150/60 01/12/20 06:00 96.6 17 96 Nasal Cannula 2.0 I&O- Last 24 Hours up to 6 AM 01/12/20 05:59 Intake Total 1230 ml Output Total 2750 ml Balance -1520 ml Laboratory Data 24H LABS Laboratory Tests 2 01/11/20 16:18: Bedside Glucose (Misc Panel) 130H 01/11/20 20:39: Bedside Glucose (Misc Panel) 169H 01/12/20 05:40: Nucleated Red Blood Cells % (auto) 0.0, Anion Gap 5L, Glomerular Filtration Rate > 60.0, Calcium Level 9.4, Magnesium Level 1.9 01/12/20 11:36: Bedside Glucose (Misc Panel) 129H CBC/BMP Laboratory Tests 01/12/20 05:40 Microbiology Microbiology 01/10/20 Respiratory Virus Panel (PCR) ([facility]) - Final, Complete FRANCHESCA ESPITIA DO Jan 12, 2020 13:42
[2020-01-12 14:00] VITALS: BP 134/74
[2020-01-12] MEDS: **NOTE PATIENT COMMENT** MISC XX SCH (21:00)
[2020-01-12] MEDS: CETIRIZINE (ZyrTEC) 10 MG TAB PO SCH (21:22)
[2020-01-12] MEDS: RAMELTEON 8 MG TAB (ROZEREM) PO SCH (21:22)
[2020-01-12] MEDS: SENNA 8.6 MG TAB (SENOKOT) PO SCH (21:22)
[2020-01-12 22:00] VITALS: BP 124/72
[2020-01-13 06:00] VITALS: BP 136/64
[2020-01-13 06:03] LABS: HEMATOCRIT 31.3 % (42.0-52.0); HEMOGLOBIN 9.6 g/dl (13.5-17.5); MEAN CORPUSCULAR HEMOGLOBIN 26.2 pg (27.0-33.0); MEAN CORPUSCULAR HGB CONC 30.7 g/dl (32.0-36.5); MEAN CORPUSCULAR VOLUME 85.3 fl (80.0-96.0); PLATELET COUNT, AUTOMATED 310 10^3/uL (150-450); RED BLOOD COUNT 3.67 10^6/uL (4.30-6.10); WHITE BLOOD COUNT 7.1 10^3/uL (4.0-10.0)
[2020-01-13 06:32] LABS: CALCIUM LEVEL 9.2 MG/DL (8.8-10.2); CREATININE FOR GFR 1.27 MG/DL (0.70-1.30); MAGNESIUM LEVEL 1.8 MG/DL (1.8-2.4); POTASSIUM SERUM 3.8 MEQ/L (3.5-5.1)
[2020-01-13] MEDS: HumaLOG INSULIN (NovoLOG) PER UNIT SC SCH (07:30)
[2020-01-13] MEDS: ADVAIR HFA 230/21MCG INHALER INH SCH (07:31)
[2020-01-13] MEDS: LEVEMIR (INSULIN DETEMIR) 1 UNITS/0.01ML SC SCH (09:00)
[2020-01-13] MEDS: TAMSULOSIN 0.4 MG CAP PO SCH (09:29)
[2020-01-13] MEDS: propylthiouraciL 50 MG TAB PO SCH (09:30)
[2020-01-13] MEDS: buPROPion **XL** TABLET 150MG (WELLBUTRIN XL) PO SCH (09:30)
[2020-01-13] MEDS: THEOPHYLLINE (THEO-24) 100MG SR **CAPSULE PO SCH (09:30)
[2020-01-13 09:32] VITALS: BP 148/80
[2020-01-13] MEDS: OMEPRAZOLE 20 MG CAP PO SCH (09:32)
[2020-01-13] MEDS: hydrOXYzine 50 MG TAB PO SCH (09:33)
[2020-01-13] MEDS: DULoxetine 30 MG CAP (CYMBALTA) PO SCH (09:33)
[2020-01-13] MEDS: LOSARTAN 50MG TABLET PO SCH (09:33)
[2020-01-13] MEDS: CALCITRIOL 0.25 MCG CAP (S0169) PO SCH (09:33)
[2020-01-13] MEDS: PRAVASTATIN 20 MG TAB PO SCH (09:33)
[2020-01-13] MEDS: DOCUSATE SODIUM 100 MG CAP PO SCH (09:33)
[2020-01-13] MEDS: FUROSEMIDE 40MG/4ML VIAL (J1940) IV SCH (09:34)
[2020-01-13] MEDS: ENOXAPARIN 40MG/0.4ML SYRINGE (J1650 PER 10MG) SC SCH (09:34)
[2020-01-13] MEDS: MIRALAX *UNIT DOSE* 17GM PACKET PO SCH (09:34)
[2020-01-13] MEDS: METHADONE 5 MG TAB (S0109) PO SCH (09:34)
[2020-01-13] MEDS ORDERED: BASA100I SC (09:42)
[2020-01-13] MEDS ORDERED: LIDO5TD TD (09:42)
[2020-01-13] MEDS ORDERED: FURO40TA2 PO (09:44)
[2020-01-13] MEDS ORDERED: FUROSEMIDE 40MG/4ML VIAL (J1940) IV ONE (13:00)
--- NOTE | 2020-01-13 21:48 | DS.PDOC ---
Discharge Summary General Date of Admission Jan 10, 2020 at 18:24 Date of Discharge Jan 13, 2020 Discharge Summary PROCEDURES PERFORMED DURING STAY: None ADMITTING DIAGNOSES: 1. Decompensated CHF 2. COPD 3. Diabetes mellitus type 2 4. Hypertension 5. Hypothyroidism 6. BPH 7. Insomnia 8. GERD 9. Chronic pain DISCHARGE DIAGNOSES: 1. Decompensated CHF 2. COPD 3. Diabetes mellitus type 2 4. Hypertension 5. Hypothyroidism 6. BPH 7. Insomnia 8. GERD 9. Chronic pain COMPLICATIONS/CHIEF COMPLAINT: CHF. HISTORY OF PRESENT ILLNESS: Mr. 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 He was recently here from 12/21/2019 to 12/26/2019 for GERMAN and weakness. He was instructed to measure his weight at home and adjust diuretics based off of weight increased. He did measure his weight initially, but then stopped and did not pay attention to his weight. He tells me his physicians are changing his medications, so he is not too keen on what he is taking. Patient tells me he does not like adding salt to foods. He sometimes boils ham to remove the salt. He does eat a lot of canned foods. Since discharge, he became progressively more short of breath and gained weight. He was at his director of vocational guidance appointment when they noticed he had pitting edema up to his abdomen and in his arms. He was sent to the ER for evaluation. BNP was 598. CXR was suggestive of CHF. He was given a dose of IV lasix and admission was called. HOSPITAL COURSE: During his hospitalization he is put on IV Lasix. As he was being diuresed, he started to feel better. While here, he did not need as much insulin as at home. We had him on 45 units of Levemir twice a day and sometimes his sliding scale was held due to parameters. Since he takes 10 mg of NovoLog with each meal, we'll send him home with 35 units of Basaglar twice a day. Otherwise today he felt well, denied any fever or chills, chest pain, abdominal pain, diarrhea, or dysuria. He did tell me that he does have arthritis of his hands and back which impede on some his mobility. He felt ready for home and subsequently was discharged DISCHARGE MEDICATIONS: Please see below. ALLERGIES: Please see below. PHYSICAL EXAMINATION ON DISCHARGE: VITAL SIGNS: Please see below. GENERAL: Comfortable, in no apparent distress. HEENT: Head normocephalic/atraumatic, EOMI, sclera clear. NECK: Supple RESPIRATORY: Lungs clear to auscultation bilaterally CARDIOVASCULAR: Regular rate and rhythm. ABDOMEN: Soft, nontender, no guarding or rebound tenderness. Normal bowel sounds. MUSCLE SKELETAL: Bilateral pitting edema NEUROLOGICAL: CN 312 grossly intact, no focal deficits noted. PSYCHOLOGICAL: Normal mood and affect LABORATORY DATA: Please see below. IMAGING: Chest x-ray Cardiomegaly with pulmonary vascular redistribution and interstitial edema. Patchy alveolar edema or pneumonitis may be suspected as well in the perihilar regions. Suspected left effusion. See comments above. PROGNOSIS: Good ACTIVITY: As tolerated DIET: 2 g sodium diet and carb consistent diet DISCHARGE PLAN: Home with home services DISPOSITION: Home, Self-Care. DISCHARGE INSTRUCTIONS: 1. Follow-up with your PCP within 5 days 2. Measure blood sugar in the morning and before each meal. Record these results and present them to your PCP 3. Weight yourself in the morning without your clothes after her first void. This will be your base weight. If he more than 3 pounds over your weight, please contact your PCP. He may need more diuretics 4. Speak with her PCP about seeing a armament repairer to help manage her CHF 5. Follow with her director of vocational guidance within 5 days ITEMS TO FOLLOWUP ON ON OUTPATIENT: 1. Echocardiogram DISCHARGE CONDITION: Stable. Total time spent on discharge planning, discharge summary, medication reconciliation: 45 minutes Vital Signs/I&Os Vital Signs Date Time Temp Pulse Resp B/P (MAP) Pulse Ox O2 Delivery O2 Flow Rate FiO2 01/13/20 09:32 80 148/80 01/13/20 09:30 2.0 01/13/20 06:00 98.1 16 96 Nasal Cannula I&O- Last 24 Hours up to 6 AM 01/13/20 06:00 Intake Total 1830 ml Output Total 1900 ml Balance -70 ml Laboratory Data Labs 24H Laboratory Tests 2 01/13/20 05:49: Nucleated Red Blood Cells % (auto) 0.0, Anion Gap 4L, Glomerular Filtration Rate 60.0, Calcium Level 9.2, Magnesium Level 1.8 01/13/20 11:40: Bedside Glucose (Misc Panel) 131H CBC/BMP Laboratory Tests 01/13/20 05:49 FSBS Laboratory Tests Test 01/13/20 11:40 Range/Units Bedside Glucose (Misc Panel) 131 80-115 MG/DL Microbiology Microbiology 01/10/20 Respiratory Virus Panel (PCR) ([facility]) - Final, Complete Discharge Medications Scheduled Aripiprazole (Abilify) 5 Mg Tablet, 5 MG PO DAILY, (Reported) Bupropion HCl (Bupropion Xl) 300 Mg Tab, 300 MG PO DAILY, (Reported) Calcitriol (Calcitriol) 0.25 Mcg Capsule, 0.25 MCG PO 5XW, (Reported) THURSDAY THROUGH THURSDAY Cetirizine HCl (Cetirizine HCl) 10 Mg Tablet, 10 MG PO QHS, (Reported) Docusate Sodium (Docusate Sodium) 100 Mg Capsule, 100 MG PO BID, (Reported) Duloxetine HCl (Duloxetine HCl) 60 Mg Cap, 60 MG PO BID, (Reported) Furosemide (Furosemide) 40 Mg Tablet, 40 MG PO DAILY Hydroxyzine Pamoate (Hydroxyzine Pamoate) 50 Mg Cap, 50 MG PO BID, (Reported) Insulin Aspart (Novolog Flexpen) 100 Unit/Ml Inj, 10 UNITS SQ WM, (Reported) Insulin Glargine,Hum.rec.anlog (Basaglar Kwikpen U-100) 100 Unit/1 Ml Insuln.pen, 35 UNIT SC BID Losartan Potassium (Losartan Potassium) 50 Mg Tablet, 50 MG PO DAILY, (Reported) RESTARTED THIS MEDICATION IN PLACE OF TORSEMIDE Methadone HCl (Methadone HCl) 5 Mg Tab, 5 MG PO BID, (Reported) Omeprazole (Omeprazole) 20 Mg Capsule.dr, 20 MG PO DAILY, (Reported) Pravastatin Sodium (Pravastatin Sodium) 40 Mg Tab, 40 MG PO DAILY, (Reported) Propylthiouracil (Propylthiouracil) 50 Mg Tab, 50 MG PO BID, (Reported) Salmeterol/Fluticasone (Advair 500-50 Diskus) 1 Each Blst.w.dev, 1 PUFF INH BID, (Reported) Sennosides (Senna) 8.6 Mg Tablet, 2 TAB PO QHS, (Reported) Tamsulosin HCl (Flomax) 0.4 Mg Capsule, 0.4 MG PO DAILY, (Reported) Theophylline Anhydrous (Peyman-24) 300 Mg Cap.er.24h, 300 MG PO BID, (Reported) dilTIAZem HCl (Diltiazem 24Hr Cd) 240 Mg Cap.er.24h, 240 MG PO DAILY, (Reported) Scheduled PRN Ipratropium/Albuterol Sulfate (Combivent Respimat 20-100 Mcg) 1 Aer Aer, 1 PUFF INH QID PRN for SHORTNESS OF BREATH, (Reported) Lidocaine (Lidocaine) 5% Adh..patch, 1 PATCH TD DAILY PRN for PAIN Methadone HCl (Methadone HCl) 5 Mg Tablet, 5 MG PO DAILY PRN for PAIN, (Reported) Allergies Coded Allergies: No Known Drug Allergies (Verified Allergy, Unknown, 06/04/18) FRANCHESCA ESPITIA DO Jan 13, 2020 21:47
--- NOTE | 2020-01-16 12:01 | ECHO ---
DATE OF PROCEDURE: 01/11/2020 Age: 69 Gender: Male REFERRING PHYSICIAN: Ceasar Trevino DO PATIENT LOCATION: Room 4216 REASON FOR STUDY: Congestive heart failure, unspecified. 2D MEASUREMENTS: IVS 1.2 cm LV 5.4 cm LVPW 1.2 cm LA 5.0 cm Aorta 3.0 cm IVC 2.1 cm DOPPLER MEASUREMENT Peak velocity across the aortic valve 2.0 m/s Peak velocity across the LVOT 0.96 m/s Peak gradient across the aortic valve 16 mmHg Mean gradient across the aortic valve 9 mmHg Mitral E 1.0 Mitral A 1.1 with a ratio of 0.9 Maximum tricuspid valve velocity 2.3 m/s 2D COMMENTS: 1. Mildly increased left ventricular size with normal left ventricular wall thickness. Left ventricular systolic function is normal, estimated at 60% to 65%. 2. Mildly to moderately enlarged left atrium. Normal right atrium and right ventricle. 3. The atrial septum appeared to be normal without evidence of defect or shunt. 4. Normal aortic root. 5. No pericardial effusion seen. 6. Mildly calcified aortic valve, leaflet excursion is probably minimally restricted. (cut out) mitral valve, tricuspid valve, and pulmonic valve. The proximal pulmonary artery branches were not well visualized. 7. The inferior vena cava was mildly dilated, central venous pressure might be elevated. Doppler with only trace to mild tricuspid regurgitation detected. The calculated pulmonary artery systolic pressure varies between 30 to 40 mmHg. Abnormal relaxation pattern was noted across the mitral valve leaflets, as well as the mitral valve annulus consistent with features of grade 1 left ventricular diastolic dysfunction. IMPRESSION: 1. Normal global left ventricular systolic function. There are some features of left ventricular diastolic dysfunction manifested by abnormal relaxation. 2. Aortic valve sclerosis with probably mild aortic stenosis. There was no aortic regurgitation. 3. Trace to mild tricuspid regurgitation with mild pulmonary hypertension. 4. There are some features of elevated central venous pressure, the inferior vena cava is mildly enlarged. MTDD
== END 2020-01-13 12:53 | disposition home health service (06) | DRG 292 ==
LOC: M ED 15:25 → M ED INP 18:24 → ENRESERV 18:40 → M MSPAV 20:49
PROVIDERS: ADMIT Internal Medicine; ATTEND Internal Medicine
DX: I11.0 Hypertensive heart disease with heart failure (principal); J96.11 Chronic respiratory failure with hypoxia; I50.9 Heart failure, unspecified; E11.9 Type 2 diabetes mellitus without complications; J44.9 Chronic obstructive pulmonary disease, unspecified; E03.9 Hypothyroidism, unspecified; N40.0 Benign prostatic hyperplasia without lower urinary tract symptoms; K21.9 Gastro-esophageal reflux disease without esophagitis; G47.33 Obstructive sleep apnea (adult) (pediatric); J60 Coalworker's pneumoconiosis; F41.9 Anxiety disorder, unspecified; F32.9 Major depressive disorder, single episode, unspecified; Z79.899 Other long term (current) drug therapy; Z79.4 Long term (current) use of insulin; E05.90 Thyrotoxicosis, unspecified without thyrotoxic crisis or storm

== ENCOUNTER → 2020-05-24 | Outpatient (REF) | payer OTHER, MEDICARE ==
[~2020-05-24] MED LIST changes: +ABIL1TAB11 PO; +BASA100I SC; +FURO40TA2 PO; +GABA-282 PO; -GABA-843 PO; +LIDO5TD TD; -PEG1POW PO; +POLY17PO18 PO
== END ==
LOC: M LAB REF 16:50
PROVIDERS: ATTEND Internal Medicine Pulmonary Disease
DX: J62.0 Pneumoconiosis due to talc dust (principal)

== ENCOUNTER → 2020-05-24 | Outpatient (REF) | payer MEDICARE ==
[2020-05-24 17:38] LABS: FREE T4 0.84 NG/DL (0.76-1.46); THYROID STIMULATING HORMONE 1.28 uIU/ML (0.358-3.740)
== END ==
LOC: M LAB REF 16:38
PROVIDERS: ATTEND Nurse Practitioner Family
DX: E03.9 Hypothyroidism, unspecified (principal)

== ENCOUNTER 2022-10-21 06:06 | Day surgery (SDC) | payer MEDICARE ==
[~2022-10-21] VITALS: Ht 177.8 cm; Wt 118.4 kg
[~2022-10-21 06:06] MED LIST changes: +BREO1INH3 INH; +CYCLOPENTOLATE 1% OPHTH SOLN 2ML BTL OD SCH; -DILT1CAP5 PO; +DILT240C41 PO; +HYDR10TAB PO; +LOSA50TA28 PO; -LOSA50TA88 PO; +NITR0.4S14 SL; +OFLOXACIN 0.3 % (OCUFLOX) OPTH SOL 5ML OD SCH; +PHENYLEPHRINE 2.5% OPHTH SOL 2ML OD SCH; +PROPARACAINE 0.5% OPHTH SOL 15ML OD ONE; +QUET150T14 PO; -QUET150T2 PO; +TIZA10TA PO; -TIZA4TAB4 PO; +TRAM50TA2 PO; +TRAZ-257 PO; +TROPICAMIDE 1% OPHTH SOLN 15ML OD SCH
[2022-10-21] MEDS ORDERED: BSS IRR 500ML/OMIDRIA 4ML IRR BAG (OR ONLY) As Ordered ONE (06:57)
[2022-10-21] MEDS ORDERED: CEFUROXIME 1MG/0.1ML INTRACAMERAL INJ As Ordered ONE (06:57)
[2022-10-21] MEDS ORDERED: LIDOCAINE 1% SDV 5ML VIAL As Ordered ONE (06:57)
[2022-10-21] MEDS ORDERED: LABETALOL 100MG/20ML VIAL As Ordered ONE (08:01)
[2022-10-21] MEDS ORDERED: MIDAZOLAM INJ 2MG/2ML VIAL As Ordered ONE (08:06)
[2022-10-21 09:12] VITALS: BP 135/58; TEMP 96.1; O2SAT 92
== END 2022-10-21 09:12 | disposition home or self-care (01) ==
LOC: M SDC 06:06
PROVIDERS: ATTEND Ophthalmology
DX: H25.11 Age-related nuclear cataract, right eye (principal); H21.81 Floppy iris syndrome; I10 Essential (primary) hypertension; E78.5 Hyperlipidemia, unspecified; E11.9 Type 2 diabetes mellitus without complications; E03.9 Hypothyroidism, unspecified; K21.9 Gastro-esophageal reflux disease without esophagitis; F32.A Depression, unspecified; N18.30 Chronic kidney disease, stage 3 unspecified; F17.200 Nicotine dependence, unspecified, uncomplicated; Z79.899 Other long term (current) drug therapy
CPT/HCPCS: 66982; J0697; J1097; J1920; J2250; V2632

== ENCOUNTER 2022-11-18 06:02 | Day surgery (SDC) | payer MEDICARE ==
[~2022-11-18] VITALS: Ht 177.8 cm; Wt 120.2 kg
[~2022-11-18 06:02] MED LIST changes: -CYCLOPENTOLATE 1% OPHTH SOLN 2ML BTL OD SCH; +CYCLOPENTOLATE 1% OPHTH SOLN 2ML BTL OS SCH; +DOCU100C16 PO; +DULO1CAP6 PO; -OFLOXACIN 0.3 % (OCUFLOX) OPTH SOL 5ML OD SCH; +OFLOXACIN 0.3 % (OCUFLOX) OPTH SOL 5ML OS SCH; -PHENYLEPHRINE 2.5% OPHTH SOL 2ML OD SCH; +PHENYLEPHRINE 2.5% OPHTH SOL 2ML OS SCH; -PROPARACAINE 0.5% OPHTH SOL 15ML OD ONE; +PROPARACAINE 0.5% OPHTH SOL 15ML OS ONE; -TROPICAMIDE 1% OPHTH SOLN 15ML OD SCH; +TROPICAMIDE 1% OPHTH SOLN 15ML OS SCH
[2022-11-18] MEDS ORDERED: LIDOCAINE 1% SDV 5ML VIAL As Ordered ONE (06:36)
[2022-11-18] MEDS ORDERED: BSS IRR 500ML/OMIDRIA 4ML IRR BAG (OR ONLY) As Ordered ONE (06:37)
[2022-11-18] MEDS ORDERED: CEFUROXIME 1MG/0.1ML INTRACAMERAL INJ As Ordered ONE (06:37)
[2022-11-18] MEDS ORDERED: MIDAZOLAM INJ 2MG/2ML VIAL As Ordered ONE (06:58)
[2022-11-18] MEDS ORDERED: fentaNYL 100 MCG/2 ML INJECTION As Ordered ONE (06:58)
[2022-11-18 07:51] VITALS: BP 142/63; TEMP 97.7; O2SAT 93
== END 2022-11-18 08:08 | disposition home or self-care (01) ==
LOC: M SDC 06:02
PROVIDERS: ATTEND Ophthalmology
DX: H25.12 Age-related nuclear cataract, left eye (principal); I10 Essential (primary) hypertension; E78.5 Hyperlipidemia, unspecified; E11.9 Type 2 diabetes mellitus without complications; E05.90 Thyrotoxicosis, unspecified without thyrotoxic crisis or storm; K21.9 Gastro-esophageal reflux disease without esophagitis; F32.A Depression, unspecified; Z79.899 Other long term (current) drug therapy; Z79.4 Long term (current) use of insulin; F17.220 Nicotine dependence, chewing tobacco, uncomplicated
CPT/HCPCS: 66984; J0697; J1097; J2250; J3010; V2632

== ENCOUNTER → 2022-11-21 | Outpatient (REF) | payer MEDICARE ==
[~2022-11-21] MED LIST changes: -CYCLOPENTOLATE 1% OPHTH SOLN 2ML BTL OS SCH; -OFLOXACIN 0.3 % (OCUFLOX) OPTH SOL 5ML OS SCH; -PHENYLEPHRINE 2.5% OPHTH SOL 2ML OS SCH; -PROPARACAINE 0.5% OPHTH SOL 15ML OS ONE; -TROPICAMIDE 1% OPHTH SOLN 15ML OS SCH
== END ==
LOC: M LAB REF 16:49
PROVIDERS: ATTEND Nurse Practitioner Family
DX: N40.1 Benign prostatic hyperplasia with lower urinary tract symptoms (principal)